=== PATIENT | female | born 1955 | race African-American/Black ===

== ENCOUNTER 2016-11-24 09:21 | Emergency (ER) | payer MEDICARE, MEDICAID ==
[2016-11-24] MEDS ORDERED: IPRATROPIUM/ALBUTEROL 0.5-2.5 MG/3 ML AMPUL NEB ONE (10:14)
[2016-11-24] MEDS ORDERED: LIDOCAINE 5% (700 MG) TRANSDERMAL ADH..PATCH TP ONE (10:16)
[2016-11-24] MEDS ORDERED: NORMAL SALINE 1000 ML 500 ML IV ONE (10:16)
[2016-11-24] MEDS ORDERED: AMLODIPINE BESYLATE 10 MG TABLET PO ONE (10:40)
[2016-11-24] MEDS ORDERED: LISINOPRIL 10 MG TABLET PO ONE (10:44)
[2016-11-24 12:31] LABS: VENOUS BLOOD BASE EXCESS -4.2 mmol/L; VENOUS BLOOD HCO3 21.3 mmol/L (20-32); VENOUS BLOOD PCO2 40.9 mmHg (35-63); VENOUS BLOOD PH 7.34 (7.30-7.42)
[2016-11-24] MEDS ORDERED: CLONIDINE HCL 0.1 MG TABLET PO ONE (13:39)
[2016-11-24 14:34] LABS: ADD MANUAL MICRO HEMATOCRIT YES
[2016-11-24] MEDS ORDERED: LORAZEPAM 1 MG TABLET PO ONE (14:36)
[2016-11-24] MEDS ORDERED: ALBUTEROL SULFATE HFA (90 MCG/PUFF) 8 GM MDI (1 MDI/ER DISP) IH ONE (14:36)
[2016-11-24 14:40] LABS: MICRO HEMATOCRIT 2 AUTO 44.6 %
[2016-11-24 14:44] LABS: BASOPHILS % (MANUAL) 0 % (0-2); EOSINOPHILS % (MANUAL) 2 % (0-6); LYMPHOCYTES % (MANUAL) 27 % (13-45); TOTAL CELLS COUNTED 100
--- NOTE | 2016-11-24 14:45 | ER Document Report ---
ED General - General Chief Complaint: Breathing Difficulty Stated Complaint: DIFFICULTY BREATHING - HPI Patient complains to provider of: shortness of breath opiate withdrawals Notes: Patient coming in to ER today for some shortness of breath opiate withdrawals. More or less patient is more concerned about appropriate withdrawals. Patient states that she was of a large amount of methadone while she was in [place] and [place]. Patient states recently moved here to [place] in August states that she's been increasing her use of her [place] home therefore came to ER and taken that she is going to go through opiate withdrawals. Patient also states some mild shortness of breath no productive cough. Patient states history of hepatitis C HIV hypertension along with her chronic pain issues. Patient does not have a PCP here in [place]. States HIV CD4 and viral load are undetectable. Denies fevers chills nausea vomiting - Related Data Allergies/Adverse Reactions: No Known Allergies Allergy (Unverified 11/24/16 11:00) Past Medical History - Social History Smoking Status: Unknown if Ever Smoked Family History: Reviewed & Not Pertinent - Past Medical History Cardiac Medical History: Reports: Hx Hypertension Review of Systems - Review of Systems Constitutional: No symptoms reported EENT: No symptoms reported Cardiovascular: No symptoms reported Respiratory: Cough, Short of breath Gastrointestinal: No symptoms reported Genitourinary: No symptoms reported Female Genitourinary: No symptoms reported Musculoskeletal: No symptoms reported Skin: No symptoms reported Hematologic/Lymphatic: No symptoms reported Neurological/Psychological: Other - Opiate withdrawals -: Yes All other systems reviewed and negative Physical Exam - Vital signs Vitals: Temp Pulse Resp BP Pulse Ox 98.1 F 81 17 172/111 H 100 11/24/16 09:21 11/24/16 09:21 11/24/16 09:21 11/24/16 09:21 11/24/16 09:21 Interpretation: Normal - General General appearance: Appears well, Alert - HEENT Head: Normocephalic, Atraumatic Eyes: Normal Pupils: PERRL - Respiratory Respiratory status: No respiratory distress Chest status: Nontender Breath sounds: Wheezing Chest palpation: Normal - Cardiovascular Rhythm: Regular Heart sounds: Normal auscultation Murmur: No - Abdominal Inspection: Normal Distension: No distension Bowel sounds: Normal Tenderness: Nontender Organomegaly: No organomegaly - Back Back: Normal, Nontender - Extremities General upper extremity: Normal inspection, Nontender, Normal color, Normal ROM , Normal temperature General lower extremity: Normal inspection, Nontender, Normal color, Normal ROM , Normal temperature, Normal weight bearing. No: Roderick's sign - Neurological Neuro grossly intact: Yes Cognition: Normal Orientation: AAOx4 Adrienne Coma Scale Eye Opening: Spontaneous [place] Coma Scale Verbal: Oriented [place] Coma Scale Motor: Obeys Commands Adrienne Coma Scale Total: 15 Speech: Normal Motor strength normal: LUE, RUE, LLE, RLE Sensory: Normal - Psychological Associated symptoms: Normal affect, Normal mood - Skin Skin Temperature: Warm Skin Moisture: Dry Skin Color: Normal Course - Re-evaluation Re-evalutation: 11/24/16 15:22 Patient shortness of breath improved with bronchodilator therapy. Chest x-ray showed no critical etiology. Laboratory had difficult time running patient's blood work. After 2 tries I reevaluated patient patient states otherwise feeling better patient she is getting mildly agitated from going through opiate withdrawals. Sizes patient that we will treat her appear withdrawals with Librium and clonidine and Zofran. Patient is to continue her home medications. Patient will also be given a bronchodilator for early bronchitis or viral etiology of shortness of breath. Patient states she does not want to wait for blood work agrees with treatment plan and agrees to follow-up with PCP. Patient discharged home - Vital Signs Vital signs: Temp Pulse Resp BP Pulse Ox 98 F 112 H 17 153/115 H 97 11/24/16 14:55 11/24/16 14:55 11/24/16 14:55 11/24/16 14:55 11/24/16 14:55 - Laboratory Result Diagrams: 11/24/16 13:28 11/24/16 12:07 Laboratory results interpreted by me: 11/24/16 13:28 Manual Hct 32.0 L Discharge - Discharge Clinical Impression: Opiate withdrawal, History of HIV infection, History of hepatitis C, Shortness of breath Condition: Good Disposition: HOME, SELF-CARE Instructions: Bronchitis With Bronchospasm (Wheezing) ([facility]), Family Physicians / Practices Additional Instructions: Please follow-up with family doctors and resources provided for your chronic health needs and your opiate withdrawals. Please take medication as prescribed for your withdrawal symptoms Return to ER if symptoms worsen Prescriptions: Ondansetron [Zofran Odt 4 mg Tablet] 4 mg PO Q4HP PRN #30 tab.rapdis PRN Reason: Chlordiazepoxide HCl [Librium 25 mg Capsule] 1 cap PO QID #16 capsule Clonidine HCl 0.1 mg PO TID #21 tablet Forms: Elevated Blood Pressure, Smoking Cessation Education, Return to Work
[2016-11-24 14:47] LABS: PLATELET CLUMPS PRESENT; ROULEAUX 2+
[2016-11-24 15:06] VITALS: BP 153/115
== END 2016-11-24 14:55 | disposition home or self-care (01) ==
LOC: ER 09:21
DX: R06.02 Shortness of breath (principal); F11.23 Opioid dependence with withdrawal; R05 Cough; G89.29 Other chronic pain; I10 Essential (primary) hypertension; Z21 Asymptomatic human immunodeficiency virus [HIV] infection status; R06.2 Wheezing; Z79.891 Long term (current) use of opiate analgesic
CPT/HCPCS: 94640; 99285; 96360; 96361; 36415; 85025; 82803; 74022; A9270 ×5; J7030; J3490; J7620

== ENCOUNTER 2016-12-03 18:00 | Emergency (ER) | payer MEDICARE, MEDICAID ==
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
[2016-12-03 19:17] LABS: APPEARANCE,URINE SLIGHTLY-CLOUDY; BILIRUBIN,URINE NEGATIVE (NEGATIVE); GLUCOSE, URINE NEGATIVE (NEGATIVE); KETONES,URINE NEGATIVE (NEGATIVE); LEUKOCYTE ESTERASE,URINE NEGATIVE (NEGATIVE); NITRITE,URINE NEGATIVE (NEGATIVE); PROTEIN,URINE 100 mg/dL (NEGATIVE); URINE SPECIFIC GRAVITY 1.012; UROBILINOGEN,URINE NEGATIVE mg/dL (<2.0)
[2016-12-03 19:30] LABS: URINE BARBITURATES SCREEN NEGATIVE; URINE METHADONE SCREEN NEGATIVE; URINE OPIATES LOW NEGATIVE; URINE PHENCYCLIDINE SCREEN NEGATIVE
[2016-12-03] MEDS ORDERED: LIDOCAINE 1% INJ-PF (10 MG/ML) 30 ML SDV INJ ONE (20:28)
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
[2016-12-03] MEDS ORDERED: SULFAMETHOXAZOLE/TRIMETHOPRIM 800-160 MG TABLET PO ONE (22:20)
[2016-12-04 00:15] VITALS: BP 148/98
--- NOTE | 2016-12-04 08:07 | EKG REPORT ---
SEVERITY:- BORDERLINE ECG - SINUS RHYTHM BORDERLINE T ABNORMALITIES, ANTERIOR LEADS : Confirmed by: Anirudh Bruno MD 04-Dec-2016 08:06:37
== END 2016-12-03 22:45 | disposition home or self-care (01) ==
LOC: ER 18:00
PROC: 0H9EXZZ Drainage of Left Lower Arm Skin, External Approach (ICD-10-PCS; principal; 2016-12-03)
DX: L02.414 Cutaneous abscess of left upper limb (principal); R06.02 Shortness of breath; R07.9 Chest pain, unspecified; R05 Cough; R53.81 Other malaise; R53.1 Weakness; I10 Essential (primary) hypertension; R00.0 Tachycardia, unspecified; F17.200 Nicotine dependence, unspecified, uncomplicated; Z21 Asymptomatic human immunodeficiency virus [HIV] infection status; Z86.11 Personal history of tuberculosis; Z59.9 Problem related to housing and economic circumstances, unspecified
CPT/HCPCS: 93005; 99285; 81001; 80307; 71010; 93010; 10060; A9270

== ENCOUNTER 2016-12-10 00:13 | Emergency (ER) | payer MEDICARE, MEDICAID ==
[2016-12-10] MEDS ORDERED: AMLODIPINE BESYLATE 10 MG TABLET PO ONE (01:07)
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
[2016-12-10 02:16] LABS: APPEARANCE,URINE CLEAR; BILIRUBIN,URINE NEGATIVE (NEGATIVE); GLUCOSE, URINE NEGATIVE (NEGATIVE); KETONES,URINE NEGATIVE (NEGATIVE); LEUKOCYTE ESTERASE,URINE NEGATIVE (NEGATIVE); NITRITE,URINE NEGATIVE (NEGATIVE); PROTEIN,URINE 100 mg/dL (NEGATIVE); UROBILINOGEN,URINE NEGATIVE mg/dL (<2.0)
[2016-12-10 02:31] LABS: URINE BARBITURATES SCREEN NEGATIVE; URINE METHADONE SCREEN NEGATIVE; URINE OPIATES LOW UNCONFIRMED POSITIVE; URINE PHENCYCLIDINE SCREEN NEGATIVE
[2016-12-10 04:16] VITALS: BP 175/115
--- NOTE | 2016-12-10 09:45 | EKG REPORT ---
SEVERITY:- BORDERLINE ECG - SINUS RHYTHM PROBABLE LEFT ATRIAL ABNORMALITY BORDERLINE T ABNORMALITIES, ANTERIOR LEADS : Confirmed by: Anirudh Bruno MD 10-Dec-2016 09:44:18
== END 2016-12-10 04:11 | disposition short-term general hospital (02) ==
LOC: ER 00:13
DX: R26.2 Difficulty in walking, not elsewhere classified (principal); R27.8 Other lack of coordination; F14.10 Cocaine abuse, uncomplicated; R06.09 Other forms of dyspnea; R07.9 Chest pain, unspecified; R53.1 Weakness; R10.11 Right upper quadrant pain; R41.0 Disorientation, unspecified; I10 Essential (primary) hypertension; B19.20 Unspecified viral hepatitis C without hepatic coma; Z21 Asymptomatic human immunodeficiency virus [HIV] infection status; Z79.899 Other long term (current) drug therapy; Z87.891 Personal history of nicotine dependence
CPT/HCPCS: 93005; 99285; 81001; 80307; 71010; 76705; 93976; 70450; 93010; A9270

== ENCOUNTER 2016-12-30 15:38 | Emergency (ER) | payer MEDICARE, MEDICAID ==
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
[2016-12-30] MEDS: NORMAL SALINE 1000 ML 1,000 ML IV PRN (17:01)
[2016-12-30 17:07] LABS: PROTHROMBIN TIME 14.5 SEC (11.4-15.4)
[2016-12-30 17:08] LABS: PARTIAL THROMBOPLASTIN TIME 37.1 SEC (23.5-35.8)
--- NOTE | 2016-12-30 17:22 | EKG REPORT ---
SEVERITY:- ABNORMAL ECG - SINUS TACHYCARDIA ATRIAL PREMATURE COMPLEX PROBABLE LVH WITH SECONDARY REPOL ABNRM : Confirmed by: Anirudh Bruno MD 30-Dec-2016 17:22:07
--- NOTE | 2016-12-30 17:24 | EKG REPORT ---
SEVERITY:- ABNORMAL ECG - SINUS TACHYCARDIA PROBABLE LEFT ATRIAL ABNORMALITY NONSPECIFIC ANTEROLATERAL ST-T CHANGES. BORDERLINE PROLONGED QT INTERVAL : Confirmed by: Anirudh Bruno MD 30-Dec-2016 17:23:45
[2016-12-30 18:01] LABS: ADD MANUAL MICRO HEMATOCRIT YES
[2016-12-30 18:04] LABS: BAND NEUTROPHILS % (MANUAL) 1 % (3-5); BASOPHILS % (MANUAL) 0 % (0-2); EOSINOPHILS % (MANUAL) 0 % (0-6); LYMPHOCYTES % (MANUAL) 36 % (13-45); TOTAL CELLS COUNTED 100
[2016-12-30 18:05] LABS: ANISOCYTOSIS 1+
[2016-12-30 18:18] LABS: MICRO HEMATOCRIT 1 AUTO 38.8 %
[2016-12-30 18:19] LABS: MICRO HEMATOCRIT 2 AUTO 23.9 %
[2016-12-30 18:27] LABS: PLATELET ESTIMATE 245 10^3/uL (150-450)
[2016-12-30 19:40] LABS: ALANINE AMINOTRANSFERASE 123 U/L (9-52); ALBUMIN 3.5 g/dL (3.5-5.0); ALKALINE PHOSPHATASE 114 U/L (38-126); ASPARTATE AMINO TRANSFERASE 73 U/L (14-36); BILIRUBIN,DIRECT 0.2 mg/dL (0.0-0.4); BILIRUBIN,TOTAL 0.5 mg/dL (0.2-1.3); BLOOD UREA NITROGEN 27 mg/dL (7-20); CARBON DIOXIDE 34 mmol/L (22-30); CHLORIDE 109 mmol/L (98-107); CREATINE KINASE 67 U/L (30-135); CREATININE RESULT 2.36 mg/dL (0.52-1.25); GLUCOSE 82 mg/dL (75-110); LIPASE 794.6 U/L (23-300); POTASSIUM 3.4 mmol/L (3.6-5.0); SODIUM 139.2 mmol/L (137-145)
[2016-12-30] MEDS ORDERED: LACTULOSE SYRUP 20 GM/30 ML UDCUP PO ONE (19:48)
[2016-12-30 20:36] LABS: TOTAL PROTEIN 10.2 g/dL (6.3-8.2)
[2016-12-30 20:38] LABS: ANION GAP 10 (5-19)
[2016-12-31] MEDS ORDERED: DIPHENHYDRAMINE HCL 50 MG/ML VIAL IV ONE (03:16)
[2016-12-31] MEDS ORDERED: HYDROCODONE/ACETAMINOPHEN 5-325 MG TABLET PO ONE (03:16)
[2016-12-31] MEDS ORDERED: CLONIDINE HCL 0.2 MG TABLET PO ONE (03:16)
--- NOTE | 2016-12-31 03:18 | ER Document Report ---
Doctor's Note Notes: 12/31/16 03:16 Nursing staff reports that patient is having difficulty sleeping, and normally takes Ambien for sleep, I did go to the bedside and evaluate patient, she states she does take Ambien for sleep, however is willing to try something different while in the emergency room, she is also complaining of some low back pain and is noted to have an elevated blood pressure and slight tachycardia, therefore blood pressure medications were ordered as well as some IV Benadryl and pain medication, otherwise patient remains stable and awaiting transfer to [facility] for further evaluation and treatment
[2016-12-31] MEDS ORDERED: OXYCODONE HCL IR 5 MG TABLET PO ONE (03:44)
[2016-12-31] MEDS ORDERED: LIDOCAINE 5% (700 MG) TRANSDERMAL ADH..PATCH TP ONE (07:48)
[2016-12-31 09:33] LABS: MEAN CORPUSCULAR HEMOGLOBIN 34.5 pg (27.0-33.4); MEAN CORPUSCULAR HGB CONC 34.6 g/dL (32.0-36.0); MEAN CORPUSCULAR VOLUME 100 fl (80-97); RED BLOOD COUNT 2.91 10^6/uL (3.72-5.28); RED CELL DISTRIBUTION WIDTH 16.6 % (11.5-14.0); WHITE BLOOD COUNT 7.4 10^3/uL (4.0-10.5)
[2016-12-31 10:03] LABS: ANION GAP 7 (5-19)
[2016-12-31 10:09] LABS: CALCIUM 12.6 mg/dL (8.4-10.2); GLUCOSE 106 mg/dL (75-110)
[2016-12-31 10:10] LABS: ALBUMIN 3.4 g/dL (3.5-5.0); ASPARTATE AMINO TRANSFERASE 70 U/L (14-36); BLOOD UREA NITROGEN 30 mg/dL (7-20); CARBON DIOXIDE 25 mmol/L (22-30); CHLORIDE 107 mmol/L (98-107); CREATININE RESULT 2.12 mg/dL (0.52-1.25); POTASSIUM 2.9 mmol/L (3.6-5.0); SODIUM 139.4 mmol/L (137-145)
[2016-12-31 10:11] LABS: ALANINE AMINOTRANSFERASE 113 U/L (9-52); ALKALINE PHOSPHATASE 104 U/L (38-126); BILIRUBIN,DIRECT 0.3 mg/dL (0.0-0.4); BILIRUBIN,TOTAL 0.5 mg/dL (0.2-1.3)
[2016-12-31] MEDS ORDERED: POTASSIUM CHLORIDE 20 MEQ/15 ML UDCUP PO ONE (11:03)
[2016-12-31] MEDS ORDERED: PROMETHAZINE HCL 25 MG TABLET PO PRN ×2 (11:27→12:19)
[2016-12-31] MEDS ORDERED: LANSOPRAZOLE 15 MG TAB.RAP.DR PO SCH (11:30)
[2016-12-31] MEDS ORDERED: HYDROCHLOROTHIAZIDE 25 MG TABLET PO SCH (11:30)
[2016-12-31] MEDS ORDERED: GABAPENTIN 300 MG CAPSULE PO SCH (11:30)
[2016-12-31] MEDS ORDERED: PREGABALIN 75 MG CAPSULE PO SCH ×2 (11:30→18:00)
[2016-12-31] MEDS ORDERED: LISINOPRIL 10 MG TABLET PO SCH (11:30)
[2016-12-31] MEDS ORDERED: NORMAL SALINE 1000 ML 1,000 ML IV ONE (11:39)
[2016-12-31] MEDS ORDERED: AMLODIPINE BESYLATE 10 MG TABLET PO SCH (12:00)
[2016-12-31 12:02] LABS: BASOPHILS % (MANUAL) 0 % (0-2); EOSINOPHILS % (MANUAL) 2 % (0-6); LYMPHOCYTES % (MANUAL) 28 % (13-45); TOTAL CELLS COUNTED 100
[2016-12-31 12:05] LABS: ANISOCYTOSIS SLIGHT
[2016-12-31 12:41] LABS: APPEARANCE,URINE CLEAR; BILIRUBIN,URINE NEGATIVE (NEGATIVE); GLUCOSE, URINE NEGATIVE (NEGATIVE); KETONES,URINE NEGATIVE (NEGATIVE); LEUKOCYTE ESTERASE,URINE NEGATIVE (NEGATIVE); NITRITE,URINE NEGATIVE (NEGATIVE); PROTEIN,URINE 100 mg/dL (NEGATIVE); UROBILINOGEN,URINE NEGATIVE mg/dL (<2.0)
[2016-12-31 12:55] LABS: URINE BARBITURATES SCREEN NEGATIVE; URINE METHADONE SCREEN NEGATIVE; URINE OPIATES LOW UNCONFIRMED POSITIVE; URINE PHENCYCLIDINE SCREEN NEGATIVE
[2016-12-31] MEDS ORDERED: NORMAL SALINE 1000 ML 1,000 ML IV PRN ×2 (12:59→13:03)
[2016-12-31] MEDS ORDERED: LISINOPRIL 10 MG TABLET PO ONE (13:00)
[2016-12-31] MEDS ORDERED: LACTULOSE SYRUP 20 GM/30 ML UDCUP PO ONE (13:00)
[2016-12-31] MEDS ORDERED: AMLODIPINE BESYLATE 5 MG TABLET PO ONE (13:00)
[2016-12-31] MEDS ORDERED: PREGABALIN 75 MG CAPSULE PO ONE (13:00)
[2016-12-31] MEDS ORDERED: LANSOPRAZOLE 15 MG TAB.RAP.DR PO ONE (13:00)
[2016-12-31] MEDS ORDERED: VENLAFAXINE HCL 75 MG TABLET PO SCH (14:00)
[2016-12-31] MEDS ORDERED: POTASSIUM CHLORIDE 10 MEQ TABLET.SA PO ONE (14:00)
[2016-12-31] MEDS ORDERED: NORMAL SALINE 1000 ML 2,000 ML IV ONE (14:00)
--- NOTE | 2016-12-31 14:21 | ER Document Report ---
Doctor's Note Notes: 12/31/16 14:20 Patient coming in for evaluation of syncope is currently waiting for transportation to [place]. Patient does have a history of multiple chronic medical problems. Patient also does have multiple a clot abnormalities. Did discuss patient's case with our hospitalist who were happy to consult and aid with medical management of this patient while we are waiting for the patient to be transferred to [place]. Patient otherwise at this time does not have any complaints. Bowel signs to remain stable
[2016-12-31] MEDS: GABAPENTIN 300 MG CAPSULE PO SCH ×2 (14:48→22:22)
[2016-12-31] MEDS: ACYCLOVIR 200 MG CAPSULE PO SCH (14:51)
[2016-12-31 15:49] LABS: ABSOLUTE EOSINOPHILS # (AUTO) 0.2 10^3/uL (0.0-0.6); ABSOLUTE LYMPHOCYTES (AUTO) 1.8 10^3/uL (0.5-4.7); ABSOLUTE MONOCYTES (AUTO) 0.7 10^3/uL (0.1-1.4); ABSOLUTE NEUT (AUTO) 3.2 10^3/uL (1.7-8.2); BASOPHILS % (AUTO) 0.3 % (0-2); EOSINOPHILS % (AUTO) 2.9 % (0-6); HEMATOCRIT 26.6 % (36.0-47.0); HEMOGLOBIN 9.3 g/dL (12.0-15.5); HGB HCT DIFFERENCE 1.3; LYMPHOCYTES % (AUTO) 30.7 % (13-45); MEAN CORPUSCULAR HEMOGLOBIN 35.2 pg (27.0-33.4); MEAN CORPUSCULAR HGB CONC 34.9 g/dL (32.0-36.0); MEAN CORPUSCULAR VOLUME 101 fl (80-97); MONOCYTES % (AUTO) 12.3 % (3-13); RED BLOOD COUNT 2.64 10^6/uL (3.72-5.28); RED CELL DISTRIBUTION WIDTH 17.2 % (11.5-14.0); SEGMENTED NEUTROPHILS % (AUTO) 53.8 % (42-78); WHITE BLOOD COUNT 5.9 10^3/uL (4.0-10.5)
[2016-12-31 16:03] LABS: ANION GAP 6 (5-19)
[2016-12-31 16:06] LABS: BLOOD UREA NITROGEN 24 mg/dL (7-20); CALCIUM 11.6 mg/dL (8.4-10.2); CARBON DIOXIDE 24 mmol/L (22-30); CHLORIDE 110 mmol/L (98-107); CREATININE RESULT 1.95 mg/dL (0.52-1.25); GLUCOSE 102 mg/dL (75-110); POTASSIUM 3.6 mmol/L (3.6-5.0); SODIUM 140.4 mmol/L (137-145)
[2016-12-31] MEDS ORDERED: LACTULOSE SYRUP 20 GM/30 ML UDCUP PO SCH (18:00)
[2016-12-31] MEDS: LACTULOSE SYRUP 20 GM/30 ML UDCUP PO SCH (19:28)
[2016-12-31] MEDS: DOCUSATE SODIUM 100 MG CAPSULE PO SCH (19:28)
[2016-12-31] MEDS: NORMAL SALINE 1000 ML 1,000 ML IV PRN (19:29)
[2016-12-31] MEDS: VENLAFAXINE HCL 75 MG TABLET PO SCH (19:29)
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
[2016-12-31] MEDS ORDERED: NICOTINE 21 MG/24 HR PATCH.TD24 TD ONE (21:15)
[2016-12-31] MEDS: OXYCODONE HCL IR 5 MG TABLET PO PRN (22:21)
[2016-12-31] MEDS: PANTOPRAZOLE SODIUM 40 MG VIAL IV SCH (22:22)
--- NOTE | 2016-12-31 23:07 | ER Document Report ---
Doctor's Note Notes: 12/31/16 23:07 This is a 61-year-old female with a complicated medical history including HIV, hepatitis (since 1993), TB (treated in 2000), neuropathy, hypertension and a recent admission for GI bleed at [facility]. The patient is relatively new to the area, having moved here from [place] in the fall. The patient presented to this hospital with syncopal episodes. The patient was found to be orthostatic and felt to be dehydrated with hypokalemia, hypercalcemia and concerns for hepatic encephalopathy. She was transferred for higher level of care. She is been treated with IV fluids, lactulose, electrolyte repletion. Currently, the patient states she's feeling much better. She is alert and oriented 3. She is in no distress and has no complaints. Repeat labs from this afternoon show mild improvement. The patient has been accepted to [facility] and we are just awaiting a bed.
[2016-12-31] MEDS ORDERED: CLONIDINE 0.2 MG/24 HR PATCH.TDWK TD ONE (23:27)
[2016-12-31] MEDS ORDERED: CLONIDINE 0.2 MG/24 HR PATCH.TDWK ONE (23:55)
[2017-01-01] MEDS: GABAPENTIN 300 MG CAPSULE PO SCH ×3 (05:40→23:08)
[2017-01-01] MEDS: OXYCODONE HCL IR 5 MG TABLET PO PRN ×2 (08:21→16:05)
[2017-01-01] MEDS: LISINOPRIL 10 MG TABLET PO SCH (09:14)
[2017-01-01] MEDS: DOCUSATE SODIUM 100 MG CAPSULE PO SCH ×2 (09:16→20:47)
[2017-01-01] MEDS: NORMAL SALINE 1000 ML 1,000 ML IV PRN ×3 (09:16→20:45)
[2017-01-01] MEDS: LACTULOSE SYRUP 20 GM/30 ML UDCUP PO SCH ×2 (09:16→20:45)
[2017-01-01] MEDS: AMLODIPINE BESYLATE 5 MG TABLET PO SCH (09:16)
[2017-01-01] MEDS: PANTOPRAZOLE SODIUM 40 MG VIAL IV SCH ×2 (09:17→23:04)
--- NOTE | 2017-01-01 09:30 | ER Document Report ---
Doctor's Note Notes: 01/01/17 09:30 pt reevalauted, currently stable, denies any concerns, explained ot her the issues with the wait time, pt is very understanding
[2017-01-01] MEDS ORDERED: (PENDING PHARMACY ID) (Lisinopril [Lisinopril] 20 MG) PO SCH (10:00)
[2017-01-01] MEDS ORDERED: LAMIVUDI PO SCH (10:00)
[2017-01-01] MEDS ORDERED: AMLODIPINE BESYLATE 5 MG TABLET PO SCH (10:00)
[2017-01-01] MEDS ORDERED: LISINOPRIL 10 MG TABLET PO SCH ×2 (10:00)
[2017-01-01] MEDS ORDERED: ABACAVIR PO SCH (10:00)
[2017-01-01] MEDS ORDERED: DOLUTEGRAVIR PO SCH (10:00)
[2017-01-01] MEDS ORDERED: LANSOPRAZOLE 15 MG TAB.RAP.DR PO SCH (10:00)
[2017-01-01] MEDS: VENLAFAXINE HCL 75 MG TABLET PO SCH ×3 (11:12→19:20)
[2017-01-01] MEDS: ACYCLOVIR 200 MG CAPSULE PO SCH (14:34)
[2017-01-01] MEDS ORDERED: HYDRALAZINE HCL INJ/PF 20 MG/1 ML SDV IV PRN (14:57)
[2017-01-01] MEDS ORDERED: CLONIDINE HCL 0.2 MG TABLET PO ONE (15:30)
[2017-01-01 17:00] LABS: ABSOLUTE EOSINOPHILS # (AUTO) 0.2 10^3/uL (0.0-0.6); ABSOLUTE LYMPHOCYTES (AUTO) 1.9 10^3/uL (0.5-4.7); ABSOLUTE MONOCYTES (AUTO) 0.6 10^3/uL (0.1-1.4); ABSOLUTE NEUT (AUTO) 3.7 10^3/uL (1.7-8.2); BASOPHILS % (AUTO) 0.5 % (0-2); EOSINOPHILS % (AUTO) 3.1 % (0-6); HEMATOCRIT 26.8 % (36.0-47.0); HEMOGLOBIN 9.2 g/dL (12.0-15.5); HGB HCT DIFFERENCE 0.8; LYMPHOCYTES % (AUTO) 29.3 % (13-45); MEAN CORPUSCULAR HEMOGLOBIN 34.9 pg (27.0-33.4); MEAN CORPUSCULAR HGB CONC 34.5 g/dL (32.0-36.0); MEAN CORPUSCULAR VOLUME 101 fl (80-97); MONOCYTES % (AUTO) 9.2 % (3-13); RED BLOOD COUNT 2.64 10^6/uL (3.72-5.28); RED CELL DISTRIBUTION WIDTH 17.1 % (11.5-14.0); SEGMENTED NEUTROPHILS % (AUTO) 57.9 % (42-78); WHITE BLOOD COUNT 6.4 10^3/uL (4.0-10.5)
[2017-01-01 17:15] LABS: ANION GAP 7 (5-19)
[2017-01-01 17:27] LABS: ALBUMIN 3.5 g/dL (3.5-5.0); ASPARTATE AMINO TRANSFERASE 58 U/L (14-36); BLOOD UREA NITROGEN 14 mg/dL (7-20); CALCIUM 12.2 mg/dL (8.4-10.2); CARBON DIOXIDE 23 mmol/L (22-30); CHLORIDE 110 mmol/L (98-107); CREATININE RESULT 1.62 mg/dL (0.52-1.25); GLUCOSE 115 mg/dL (75-110); POTASSIUM 3.4 mmol/L (3.6-5.0); SODIUM 140.3 mmol/L (137-145)
[2017-01-01 17:28] LABS: ALANINE AMINOTRANSFERASE 96 U/L (9-52); ALKALINE PHOSPHATASE 95 U/L (38-126); BILIRUBIN,DIRECT 0.2 mg/dL (0.0-0.4); BILIRUBIN,TOTAL 0.3 mg/dL (0.2-1.3); TOTAL PROTEIN 9.6 g/dL (6.3-8.2)
--- NOTE | 2017-01-01 19:06 | ER Document Report ---
Doctor's Note Notes: 01/01/17 19:05 Patient was evaluated by hospitalist staff patient is renal failure hypercalcemia has improved. More likely patient symptoms or related to dehydration. Otherwise patient still waiting on transfer to [facility] did call the transfer team states that they are still on diversion I do not see the possibility any beds opening up on next 12 hours. I did discuss with patient about possibility of discharge states that she would rather stay denies that she does not have arrival at the wait for [facility] however she is still here in the morning that she will be agreeable to discharge also Simran to talk to her daughter's about it first. Patient otherwise stable
[2017-01-01] MEDS: DOXEPIN HCL 10 MG CAPSULE PO SCH (19:21)
[2017-01-01] MEDS: CLONIDINE HCL 0.1 MG TABLET PO SCH (23:08)
[2017-01-02] MEDS: OXYCODONE HCL IR 5 MG TABLET PO PRN ×2 (04:21→19:57)
[2017-01-02] MEDS: GABAPENTIN 300 MG CAPSULE PO SCH ×3 (05:55→21:53)
[2017-01-02] MEDS: CLONIDINE HCL 0.1 MG TABLET PO SCH ×3 (05:55→21:53)
[2017-01-02] MEDS: PANTOPRAZOLE SODIUM 40 MG VIAL IV SCH ×2 (10:24→21:53)
[2017-01-02] MEDS: VENLAFAXINE HCL 75 MG TABLET PO SCH ×3 (10:29→19:44)
[2017-01-02] MEDS: LISINOPRIL 10 MG TABLET PO SCH (10:29)
[2017-01-02] MEDS: DOXEPIN HCL 10 MG CAPSULE PO SCH ×2 (10:29→19:43)
[2017-01-02] MEDS: AMLODIPINE BESYLATE 5 MG TABLET PO SCH (10:30)
[2017-01-02] MEDS: DOCUSATE SODIUM 100 MG CAPSULE PO SCH ×2 (10:31→19:43)
[2017-01-02] MEDS: LACTULOSE SYRUP 20 GM/30 ML UDCUP PO SCH ×2 (10:31→19:44)
[2017-01-02] MEDS: ACYCLOVIR 200 MG CAPSULE PO SCH (15:02)
--- NOTE | 2017-01-02 16:20 | ER Document Report ---
Doctor's Note Notes: 01/02/17 16:20 Patient was reevaluated, she is resting comfortably states she's been walking around with no difficulty. Given that we are still awaiting for transfer I did speak to her about discharge, she wishes to be discharged if she is still here by Sunday
--- NOTE | 2017-01-02 19:39 | ER Document Report ---
Doctor's Note Notes: 01/02/17 19:36 Asked to see patient and evaluate her because of the length of stay waiting for a bed at [facility]. Reviewed her entire history spoke with the patient at the bedside. Multiple ED notes about possible discharge of the patient however the daughter who is not here currently was insistent that the patient was not cared for properly in [place] or [place] and that they want to be transferred to [facility]. The hospitalist has not wanted to admit her here due to HIV status. Patient states at the bedside currently she is awake alert not dizzy or lightheaded with no chest pain or shortness of breath. She states that her daughter is going to come in this evening to discuss possibility of discharge or outpatient follow-up.
[2017-01-02] MEDS: NORMAL SALINE 1000 ML 1,000 ML IV PRN (23:21)
[2017-01-03] MEDS: OXYCODONE HCL IR 5 MG TABLET PO PRN ×2 (04:11→13:04)
[2017-01-03] MEDS ORDERED: SIMETHICONE 80 MG TAB.CHEW PO ONE (06:06)
[2017-01-03] MEDS: CLONIDINE HCL 0.1 MG TABLET PO SCH ×2 (06:12→15:43)
[2017-01-03] MEDS: GABAPENTIN 300 MG CAPSULE PO SCH ×2 (06:12→15:44)
--- NOTE | 2017-01-03 06:30 | ER Document Report ---
Doctor's Note Notes: 01/03/17 05:29 Resting comfortably. Vital stable. Patient will be signed out to oncoming provider. Still awaiting a bed at [facility].
[2017-01-03] MEDS: LACTULOSE SYRUP 20 GM/30 ML UDCUP PO SCH ×2 (10:09→18:39)
[2017-01-03] MEDS: PANTOPRAZOLE SODIUM 40 MG VIAL IV SCH (10:09)
[2017-01-03] MEDS: AMLODIPINE BESYLATE 5 MG TABLET PO SCH (10:10)
[2017-01-03] MEDS: LISINOPRIL 10 MG TABLET PO SCH (10:10)
[2017-01-03] MEDS: DOCUSATE SODIUM 100 MG CAPSULE PO SCH ×2 (10:10→18:40)
[2017-01-03] MEDS: DOXEPIN HCL 10 MG CAPSULE PO SCH (10:15)
[2017-01-03] MEDS: VENLAFAXINE HCL 75 MG TABLET PO SCH (10:15)
--- NOTE | 2017-01-03 12:09 | ER Document Report ---
Doctor's Note Notes: 01/03/17 12:08 pt reevaluated and stable. will order cbc and cmp repeat [facility] will not take the patient
[2017-01-03 14:20] LABS: ABSOLUTE EOSINOPHILS # (AUTO) 0.1 10^3/uL (0.0-0.6); ABSOLUTE LYMPHOCYTES (AUTO) 0.9 10^3/uL (0.5-4.7); ABSOLUTE MONOCYTES (AUTO) 0.3 10^3/uL (0.1-1.4); ABSOLUTE NEUT (AUTO) 3.8 10^3/uL (1.7-8.2); BASOPHILS % (AUTO) 0.2 % (0-2); EOSINOPHILS % (AUTO) 1.2 % (0-6); HEMATOCRIT 24.6 % (36.0-47.0); HEMOGLOBIN 8.6 g/dL (12.0-15.5); HGB HCT DIFFERENCE 1.2; LYMPHOCYTES % (AUTO) 17.2 % (13-45); MEAN CORPUSCULAR HGB CONC 34.9 g/dL (32.0-36.0); MEAN CORPUSCULAR VOLUME 100 fl (80-97); MONOCYTES % (AUTO) 6.6 % (3-13); RED BLOOD COUNT 2.46 10^6/uL (3.72-5.28); SEGMENTED NEUTROPHILS % (AUTO) 74.8 % (42-78)
[2017-01-03 14:40] LABS: ALANINE AMINOTRANSFERASE 75 U/L (9-52); ALBUMIN 3.4 g/dL (3.5-5.0); ALKALINE PHOSPHATASE 97 U/L (38-126); ANION GAP 6 (5-19); ASPARTATE AMINO TRANSFERASE 40 U/L (14-36); BILIRUBIN,DIRECT 0.1 mg/dL (0.0-0.4); BILIRUBIN,TOTAL 0.4 mg/dL (0.2-1.3); BLOOD UREA NITROGEN 8 mg/dL (7-20); CARBON DIOXIDE 24 mmol/L (22-30); CHLORIDE 109 mmol/L (98-107); CREATININE RESULT 1.28 mg/dL (0.52-1.25); GLUCOSE 112 mg/dL (75-110); SODIUM 139.3 mmol/L (137-145); TOTAL PROTEIN 8.5 g/dL (6.3-8.2)
[2017-01-03 14:49] LABS: CALCIUM 11.9 mg/dL (8.4-10.2)
[2017-01-03 14:52] LABS: POTASSIUM 3.1 mmol/L (3.6-5.0)
[2017-01-03] MEDS ORDERED: POTASSIUM CHLORIDE 10 MEQ TABLET.SA PO ONE (15:15)
[2017-01-03] MEDS: ACYCLOVIR 200 MG CAPSULE PO SCH (15:44)
[2017-01-03] MEDS ORDERED: VENLAFAXINE HCL 75 MG TABLET PO ONE (16:00)
[2017-01-03] MEDS ORDERED: DOXEPIN HCL 10 MG CAPSULE PO ONE (16:00)
[2017-01-03] MEDS ORDERED: FUROSEMIDE INJ/PF 40 MG/4 ML SDV IV ONE (16:43)
[2017-01-03 19:05] VITALS: BP 114/85
[2017-01-03] MEDS ORDERED: VENLAFAXINE HCL 75 MG TABLET PO SCH (22:00)
[2017-01-03] MEDS ORDERED: DOXEPIN HCL 10 MG CAPSULE PO SCH (22:00)
== END 2017-01-03 19:20 | disposition home or self-care (01) ==
LOC: ER 15:38
DX: N28.9 Disorder of kidney and ureter, unspecified (principal); E83.52 Hypercalcemia; E86.0 Dehydration; B20 Human immunodeficiency virus [HIV] disease; I95.1 Orthostatic hypotension; F11.20 Opioid dependence, uncomplicated; F11.10 Opioid abuse, uncomplicated; R53.1 Weakness; R55 Syncope and collapse; B18.2 Chronic viral hepatitis C; I10 Essential (primary) hypertension; Z96.652 Presence of left artificial knee joint; Z86.11 Personal history of tuberculosis
CPT/HCPCS: 93005; 96376; 99291; 96361; 96374; 96375; 36415; 82550; 83690; 80307 ×2; 85025; 85610; 85730; 80076; 80048; 80053; 81001; 82397; 82330; 71010; 93010; A9270 ×36; J1200; J1940; J0360; J3490; C9113 ×3; J7030 ×3; 82306; 82652; 83970; S0164

== ENCOUNTER 2017-02-24 21:44 | Inpatient (IN) | payer MEDICARE, MEDICAID ==
[2017-02-24 22:56] LABS: ABSOLUTE LYMPHOCYTES (AUTO) 1.2 10^3/uL (0.5-4.7); ABSOLUTE NEUT (AUTO) 3.8 10^3/uL (1.7-8.2); BASOPHILS % (AUTO) 0.4 % (0-2); EOSINOPHILS % (AUTO) 0.8 % (0-6); HEMATOCRIT 37.7 % (36.0-47.0); HEMOGLOBIN 12.7 g/dL (12.0-15.5); HGB HCT DIFFERENCE 0.4; MEAN CORPUSCULAR HEMOGLOBIN 34.3 pg (27.0-33.4); MEAN CORPUSCULAR HGB CONC 33.8 g/dL (32.0-36.0); MEAN CORPUSCULAR VOLUME 101 fl (80-97); MONOCYTES % (AUTO) 17.2 % (3-13); RED BLOOD COUNT 3.72 10^6/uL (3.72-5.28); RED CELL DISTRIBUTION WIDTH 14.1 % (11.5-14.0); SEGMENTED NEUTROPHILS % (AUTO) 62.6 % (42-78); WHITE BLOOD COUNT 6.1 10^3/uL (4.0-10.5)
[2017-02-24 23:08] LABS: ALANINE AMINOTRANSFERASE 134 U/L (9-52); ALBUMIN 4.7 g/dL (3.5-5.0); ALKALINE PHOSPHATASE 59 U/L (38-126); ANION GAP 19 (5-19); ASPARTATE AMINO TRANSFERASE 179 U/L (14-36); BILIRUBIN,DIRECT 0.6 mg/dL (0.0-0.4); BILIRUBIN,TOTAL 0.7 mg/dL (0.2-1.3); BLOOD UREA NITROGEN 31 mg/dL (7-20); CALCIUM 11.3 mg/dL (8.4-10.2); CARBON DIOXIDE 15 mmol/L (22-30); CHLORIDE 106 mmol/L (98-107); CREATININE RESULT 1.66 mg/dL (0.52-1.25); GLUCOSE 71 mg/dL (75-110); POTASSIUM 3.6 mmol/L (3.6-5.0); SODIUM 139.7 mmol/L (137-145); TOTAL PROTEIN 8.6 g/dL (6.3-8.2)
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
[2017-02-24] MEDS ORDERED: NORMAL SALINE 1000 ML 1,000 ML IV ONE (23:40)
[2017-02-25 00:55] LABS: APPEARANCE,URINE SLIGHTLY-CLOUDY; BILIRUBIN,URINE NEGATIVE (NEGATIVE); GLUCOSE, URINE NEGATIVE (NEGATIVE); KETONES,URINE TRACE mg/dL (NEGATIVE); LEUKOCYTE ESTERASE,URINE TRACE (NEGATIVE); NITRITE,URINE NEGATIVE (NEGATIVE); PROTEIN,URINE 100 mg/dL (NEGATIVE); URINE SPECIFIC GRAVITY 1.019; UROBILINOGEN,URINE NEGATIVE mg/dL (<2.0)
[2017-02-25 01:33] LABS: URINE BARBITURATES SCREEN NEGATIVE; URINE METHADONE SCREEN NEGATIVE; URINE OPIATES LOW UNCONFIRMED POSITIVE; URINE PHENCYCLIDINE SCREEN NEGATIVE
[2017-02-25] MEDS ORDERED: CIPROFLOXACIN 400 MG/D5W RTU 200 ML IV ONE (04:01)
[2017-02-25 05:31] LABS: CREATINE KINASE MB 1.13 ng/mL (<4.55)
[2017-02-25 05:32] LABS: TROPONIN I < 0.012 ng/mL
[2017-02-25 06:01] LABS: ADD ON TESTING BLD IN LAB ACKNOWLEDGE
[2017-02-25 06:13] LABS: MAGNESIUM 2.8 mg/dL (1.6-2.3)
[2017-02-25 06:51] LABS: ABSOLUTE EOSINOPHILS # (AUTO) 0.1 10^3/uL (0.0-0.6); ABSOLUTE LYMPHOCYTES (AUTO) 1.2 10^3/uL (0.5-4.7); ABSOLUTE MONOCYTES (AUTO) 0.9 10^3/uL (0.1-1.4); ABSOLUTE NEUT (AUTO) 3.6 10^3/uL (1.7-8.2); BASOPHILS % (AUTO) 0.3 % (0-2); EOSINOPHILS % (AUTO) 1.5 % (0-6); HEMATOCRIT 36.1 % (36.0-47.0); HEMOGLOBIN 12.5 g/dL (12.0-15.5); HGB HCT DIFFERENCE 1.4; MEAN CORPUSCULAR HGB CONC 34.6 g/dL (32.0-36.0); MEAN CORPUSCULAR VOLUME 101 fl (80-97); MONOCYTES % (AUTO) 15.5 % (3-13); RED BLOOD COUNT 3.57 10^6/uL (3.72-5.28); RED CELL DISTRIBUTION WIDTH 14.1 % (11.5-14.0); SEGMENTED NEUTROPHILS % (AUTO) 61.7 % (42-78); WHITE BLOOD COUNT 5.8 10^3/uL (4.0-10.5)
[2017-02-25 07:14] LABS: ALANINE AMINOTRANSFERASE 128 U/L (9-52); ALBUMIN 4.6 g/dL (3.5-5.0); ALKALINE PHOSPHATASE 56 U/L (38-126); ANION GAP 16 (5-19); ASPARTATE AMINO TRANSFERASE 161 U/L (14-36); BILIRUBIN,DIRECT 0.6 mg/dL (0.0-0.4); BILIRUBIN,TOTAL 0.8 mg/dL (0.2-1.3); BLOOD UREA NITROGEN 34 mg/dL (7-20); CARBON DIOXIDE 18 mmol/L (22-30); CHLORIDE 106 mmol/L (98-107); CREATININE RESULT 1.53 mg/dL (0.52-1.25); GLUCOSE 68 mg/dL (75-110); POTASSIUM 3.7 mmol/L (3.6-5.0); SODIUM 139.7 mmol/L (137-145); TOTAL PROTEIN 8.4 g/dL (6.3-8.2)
--- NOTE | 2017-02-25 07:32 | Progress Note ---
Provider Note Provider Note: RUSTY ARMSTRONG Search Criteria: Last Name 'Rusty' and First Name 'Edilia' and = 51 ' and Request Period = 08/29/16' to 02/25/17' - 1 out of 1 Recipients Selected. Fill Date Product, Str, Form Qty Days Pt ID Prescriber Written RX# N/R* Pharm MED+ ------ ---- --------- --- ------- ----- 02/14/2017 LYRICA 75 MG CAPSULE 60.00 30 [id number] 02/12/2017 [id number] N [id number] 00.0 02/14/2017 ZOLPIDEM TART ER 12.5 MG TAB 30.00 30 [id number] 02/12/2017 [id number] N [id number] 00.0 01/26/2017 OXYCODONE HCL 10 MG TABLET 40.00 10 [id number] 01/26/2017 [id number] N [id number] 60.0 01/18/2017 ZOLPIDEM TART ER 12.5 MG TAB 30.00 30 [id number] 01/15/2017 [id number] N [id number] 00.0 12/01/2016 LYRICA 75 MG CAPSULE 60.00 30 [id number] 12/01/2016 [id number] N [id number] 00.0 11/28/2016 ZOLPIDEM TARTRATE 10 MG TABLET 30.00 30 [id number] 2016 [id number] N [id number] 00.0 11/25/2016 CHLORDIAZEPOXIDE 25 MG CAPSULE 16.00 3 [id number] 11/24/2016 [id number] N [id number] 00.0 [id number] NATY KNUTSON DO; [facility], [address] [place] [id number] RAMILA HENRÁNDEZ MD; [address] [place] [id number] Pharmacies that dispensed prescriptions listed [id number] [employer] [facility] [address] [facility] Patients that match search criteria ---- [id number] [address]; [address] [facility] [place] [id number]
[2017-02-25] MEDS ORDERED: (PENDING PHARMACY ID) (Doxepin Hcl [Silenor] 3 MG) PO PRN (14:40)
[2017-02-25] MEDS ORDERED: PROCHLORPERAZINE MALEATE 10 MG TABLET PO PRN (14:40)
[2017-02-25] MEDS: HEPARIN SOD (PORCINE) 5,000 UNIT/ML 1 ML SYRINGE SUBCUT SCH ×2 (15:23→21:09)
[2017-02-25] MEDS: OXYCODONE HCL IR 5 MG TABLET PO PRN ×2 (16:48→22:50)
--- NOTE | 2017-02-25 17:10 | EKG REPORT ---
SEVERITY:- ABNORMAL ECG - SINUS TACHYCARDIA LEFT ATRIAL ABNORMALITY PROBABLE LEFT VENTRICULAR HYPERTROPHY : Confirmed by: Gricelda Green MD 25-Feb-2017 17:10:05
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
[2017-02-25] MEDS ORDERED: CLONIDINE HCL 0.1 MG TABLET ONE (21:05)
[2017-02-25] MEDS: AMITRIPTYLINE HCL 25 MG TABLET PO SCH (21:07)
[2017-02-25] MEDS: LACTULOSE SYRUP 20 GM/30 ML UDCUP PO SCH (21:07)
[2017-02-25] MEDS: PREGABALIN 75 MG CAPSULE PO SCH (21:08)
[2017-02-25] MEDS: CLONIDINE HCL 0.1 MG TABLET PO SCH (21:49)
[2017-02-25] MEDS ORDERED: (PENDING PHARMACY ID) (Lactulose [Constulose 10 Gm/15 Ml Oral Solution] 30 ML) PO SCH (22:00)
[2017-02-25] MEDS ORDERED: CLONIDINE HCL 0.1 MG TABLET PO SCH (22:00)
[2017-02-25] MEDS ORDERED: CIPROFLOXACIN 400 MG/D5W RTU 200 ML IV SCH (22:00)
[2017-02-26] MEDS: CLONIDINE HCL 0.1 MG TABLET PO SCH (06:18)
[2017-02-26] MEDS: HEPARIN SOD (PORCINE) 5,000 UNIT/ML 1 ML SYRINGE SUBCUT SCH ×3 (06:19→23:02)
[2017-02-26] MEDS: OXYCODONE HCL IR 5 MG TABLET PO PRN (06:19)
--- NOTE | 2017-02-26 07:42 | Physician Advisory Note ---
Physician Advisor ProgressNote .: Pursuant to the plan for [facility], I have reviewed the medical record for this patient. Physician Advisor Statement: Possible documentation opportunities if attending agrees: 1. "Acute metabolic acidosis, likely due to " 2. Med necessity: ?"orthostatic hypotension, likely due to ____", "Persistent tachycardia since arrival", "Hypoglycemia", .... - see below 3. "Acute Kidney Injury due to intravascular volume depletion, improved, w/ baseline Cr 1.2" 4. "long h/o IVDA - concern for bacterial heart valve damage/infection [or ...? ]" As always, if concerned about any unstable VS or abnormal labs, please comment on them - what bad things they might indicate, why they concern you - & note what doing about them. Please also document each day the potential clinical problems you are concerned could occur if pt not kept in hospital for tx at this time. (These points are medina - if present in each note, attending's status decision should be sufficiently supported.) Discussion: 61yo female w/ chronic co-morbidities including HTN, HIV on no current antivirals likely due to repeated noncompliance w/tx, hep C, ? TIA, repeated episodes of syncope over years, polypharmacy including Lyrica, Ambien, oxycodone , & Librium, substance abuse inclucing IV heroin use age [age], methadone until appx 2mo ago, using non-Rx'd opioids & crack cocaine, Etoh abuse, TB, [place] light chain dz with recent chemotx, CKD stage 2-3. - presented late 02/24 PM to ED w/AMS of fluctuating sx including intermittent hallucinations & excessive somnolence (+) HR 103, RR26, bicarb 15, BUN 31, Cr 1.66, Glc 71, Ca 11.3, elevated LFTs, UDS (+) opiates/benzos/cocaine. ED gave cipro & IVF, with temporary improvement in tachycardia. Attending ordered IV cipro, clonidine q8h, lactulose q12h, oxycodone 10mg q6h prn, Lyrica 75mg q12h, compazine prn, Hem-Onc consult. Status: Pt initially appropriate for Outpt Obs for AMS/polypharm/substance abuse/UTI. Since arrival, this Medicare pt persistently tachycardic, then w/fall w/ apparent orthostasis w/BP down to 80/55, prompting further eval by covering attending including q4h orthostatic VS, head CT, falls precautions w/bed alarm. (This occurred after episode of bowel incontinence, which was also not reported to be a baseline issue for this pt.) Following attending was concerned for dehydration causing orthostatic hypotension, ordered IVF, cut back dose clonidine, changing to Norvasc w/close monitoring continuing. Also concerned for damage or infxn of heart related to h/o IVDA. Tx & monitoring in inpatient hospital setting medically reasonable & necessary to protect pt's health, safety, & medical condition. Appropriate for Inpt status. Thanks for your help with documentation accuracy/specificity improvement! Marlene Candelario MD [facility] Physician Advisor, Fellow of [facility]
[2017-02-26] MEDS: CIPROFLOXACIN 400 MG/D5W RTU 400 MG/200 ML RTUPB IV SCH ×2 (07:49→10:07)
[2017-02-26] MEDS: AMITRIPTYLINE HCL 25 MG TABLET PO SCH ×2 (10:06→23:01)
[2017-02-26] MEDS: PREGABALIN 75 MG CAPSULE PO SCH ×2 (10:06→23:01)
[2017-02-26] MEDS: LACTULOSE SYRUP 20 GM/30 ML UDCUP PO SCH ×2 (10:06→23:01)
[2017-02-26] MEDS ORDERED: METOPROLOL SUCCINATE 50 MG TAB.SR.24H PO SCH (10:45)
--- NOTE | 2017-02-26 11:30 | PROGRESS NOTE E ---
Progress Note NAME: NATHANIEL DOMINGUEZ : 1955 AGE: 61Y DATE: 02/26/2017 ROOM: 318 SUBJECTIVE: The patient is currently lying in bed. The patient will awaken, but appears a little slow, but is more alert than she was yesterday on admission. The patient apparently overnight got out of bed and was quite weak and fell and struck her head. There was no obvious area of this. The patient's CT was unremarkable. I have obtained records from the patient's recent visit at [facility], which has been more enlightening. The patient does appear to have some orthostasis and the patient denies any nausea, vomiting. No diarrhea, shortness of breath, chest pain. She denies any dizziness as well, just complains of weakness. The patient freely admits to having years of syncopal episodes and that this is not too uncommon for her and no other concerns are voiced at this time. REVIEW OF SYSTEMS: Rest of review of systems negative. MEDICATIONS: Medications have been reviewed. OBJECTIVE: GENERAL: The patient is a 61-year-old -Irish female who is awake, alert. She is oriented to person, place, time. She is a little delayed, does not appear to be in any acute distress. VITAL SIGNS: Temperature is 97.8, pulse 101, respirations 18, blood pressure is 171/81, oxygen saturation is 97% on room air. SKIN: Warm and dry. No rash. She is not diaphoretic. HEENT: Pupils equal, round, reactive to light and accommodation. Conjunctiva is pink. There is no JVP. CARDIOVASCULAR SYSTEM: Heart is regular. No rub. CHEST: Clear, symmetrical, unlabored. ABDOMEN: Soft, nontender, nondistended. BACK: No CVA tenderness or sacral edema. EXTREMITIES: No clubbing, cyanosis, or edema. PSYCHIATRIC: Apathetic, cooperative, but not completely forthcoming. DIAGNOSTICS: Lab values are as follows: Hematology obtained on 02/25/2017: WBCs are 5.8, hemoglobin is 12.5, hematocrit is 36.1, platelet count is 134,000. Chemistry obtained on 02/25/2017: Sodium is 139, potassium 3.7, chloride is 106, carbon dioxide 18, BUN 34, creatinine is 1.53, glucose 68, calcium is 11.0. AST 161, ALT is 128. IMPRESSION AND PLAN: 1. SYNCOPE STATUS POST FALL WELL. Upon review of records, it appears that the patient does have a significant history of this, however, she is unable to articulate any form of workup. The patient has recently relocated from here. Upon review of the records from [facility], does not appear the patient has had a recent echocardiogram or cardiac evaluation. Given the patient's long history of IV drug use, will obtain echocardiogram, and in the meantime, will liberalize salt in diet given the patient's orthostasis. 2. ORTHOSTATIC HYPOTENSION PER NUMBER 1. As well, the patient has had a long history of having syncopal episodes. Uncertain if this is related to her substance use; however, the patient does appear to be somewhat dehydrated. Will hydrate the patient and follow. 3. HYPERTENSION. The patient has had some quite symptomatic hypotension, but rebounds rapidly. Most likely this is due to clonidine. Will taper this and transition to Norvasc. I have reviewed the records from [facility] and the patient's clonidine was actually discontinued during a previous admission. However, the patient has continued to take it. Will follow blood pressures closely and watch for rebound tachycardia. Will avoid beta blockers given the patient's cocaine use. 4. KAPPA LIGHT CHAIN DISEASE. The patient was initially treated at [facility], but is now seeing Dr. Dooley. She has had 2 doses of chemotherapy outpatient according to the patient. Will consult Dr. Dooley for input. 5. SUBSTANCE ABUSE. According to previous records, it appears that the patient has had a history of intravenous heroin use from the ages of 15 to 57. The patient was on methadone until a couple of months ago when she moved to [place]. The patient will use crack cocaine and was actually positive on admission. The patient has been counseled on possible interactions with medications and the dangers associated with this. 6. HEPATITIS C. The patient is naive to treatment. Her viral load was 500,000. Most likely, this is the reason for elevation of LFTs. 7. CHRONIC KIDNEY DISEASE STAGE 2-3. It appears the patient's baseline creatinine is actually around 1.2. Given the slight metabolic acidosis, do feel the patient is actually a little dry. Will hydrate. 8. NAUSEA AND VOMITING. Will continue p.r.n. antiemetics. 9. HUMAN IMMUNODEFICIENCY VIRUS. The patient is not on any antiviral medications. It appears the patient is supposed to be referred to Infectious Disease at [facility] through Dr. Dooley for management with this. I can only assume the medications have been halted given the patient's history of noncompliance and risk for drug resistance. Will not start any further medications at this time. 10. DVT PROPHYLAXIS. Will continue subcu heparin. DISPOSITION: The patient is a FULL CODE. Pending patient's symptomatology and diagnostic findings, will re-evaluate in the a.m. Will actually refer the patient to palliative care given her multiple comorbidities as well as new chronic illness. Will need some help in guidance and goal setting. Time spent on this followup including assessment, plan, physical examination, attempt at patient education and specialty collaboration is 35 minutes. DICTATING PHYSICIAN: DALE TOLENTINO NP [id number] PHY#: [id number] ID: [id number] JOB#: [id number] ACCT: [id number] cc: >
[2017-02-26] MEDS: AMLODIPINE BESYLATE 5 MG TABLET PO SCH (12:21)
[2017-02-26] MEDS: NORMAL SALINE 1000 ML 1,000 ML IV PRN ×3 (12:24→23:02)
--- NOTE | 2017-02-26 18:43 | XCELERA REPORT ---
[address] [address] Transthoracic Echocardiogram Report Name: NATHANIEL DOMINGUEZ Age: 61 yrs Gender: Female : 1955 Patient Status: Inpatient Patient Location: 3W\S\318\S\B Study Date: 02/26/2017 11:16 AM Height: 66 in Weight: 145 lb BSA: 1.7 m2 Procedure: A complete two-dimensional transthoracic echocardiogram was performed (2D, M-mode, spectral and color flow Doppler). The study was technically adequate with some images being suboptimal in quality. Reason For Study: syncope Ordering Physician: DALE TOLENTINO Performed By: Swapna Clay Interpretation Summary The left ventricular ejection fraction is normal. There is moderate concentric left ventricular hypertrophy. Doppler measurements suggest pseudonormalized left ventricular relaxation, which is associated with grade II/IV or mild to moderate diastolic dysfunction The left ventricle is grossly normal size. Wall motion cannot be accurately commented on, but no definite regional wall motion abnormalities noted. The right atrium is normal in size The left atrial size is normal. There is a trace to mild amount of mitral regurgitation There is no mitral valve stenosis. No aortic regurgitation is present. There is no aortic valve stenosis There is a mild amount of tricuspid regurgitation Right ventricular systolic pressure is at the upper limits of normal The aortic root is not well visualized but is probably normal size. The inferior vena cava was not well visualized There is no pericardial effusion. MMode/2D Measurements \T\ Calculations RVDd: 3.3 cm LVIDd: 3.8 cm FS: 29.1 % Ao root diam: IVSd: 1.2 cm LVIDs: 2.7 cm EDV(Teich): 3.3 cm LVPWd: 1.2 cm 61.3 ml Ao root area: ESV(Teich): 26.6 ml 8.5 cm2 EF(Teich): 56.7 % LA dimension: 3.4 cm LVOT diam: LVLd ap4: 7.0 cm SV(MOD-sp4): 2.2 cm EDV(MOD-sp4): 34.0 ml LVOT area: 60.0 ml LVLs ap4: 5.7 cm 3.9 cm2 ESV(MOD-sp4): 26.0 ml EF(MOD-sp4): 56.7 % Doppler Measurements \T\ Calculations MV E max porter: MV P1/2t max porter: Ao V2 max: LV V1 max P.8 cm/sec 51.8 cm/sec 92.6 cm/sec 2.5 mmHg MV A max porter: MV P1/2t: 42.3 msec Ao max PG: LV V1 max: 84.9 cm/sec MVA(P1/2t): 5.2 cm2 3.4 mmHg 79.8 cm/sec MV E/A: 0.60 MV dec slope: VIMAL(V,D): 3.4 cm2 359.0 cm/sec2 PA V2 max: PI end-d porter: TR max porter: 74.5 cm/sec 145.4 cm/sec 203.6 cm/sec PA max PG: TR max P.2 mmHg 16.6 mmHg Left Ventricle The left ventricle is grossly normal size. There is moderate concentric left ventricular hypertrophy. The left ventricular ejection fraction is normal. Doppler measurements suggest pseudonormalized left ventricular relaxation, which is associated with grade II/IV or mild to moderate diastolic dysfunction. Wall motion cannot be accurately commented on, but no definite regional wall motion abnormalities noted. Right Ventricle The right ventricle is grossly normal size. There is normal right ventricular wall thickness. The right ventricular systolic function is normal. Atria The right atrium is normal in size. The left atrial size is normal. Interarterial septum not well visualized and not well dopplered. Cannot comment on ASD/PFO presence. Mitral Valve The mitral valve leaflets are sclerotic, but show no functional abnormalities. There is no mitral valve stenosis. There is a trace to mild amount of mitral regurgitation. Aortic Valve The aortic valve is grossly normal. There is no aortic valve stenosis. No aortic regurgitation is present. Tricuspid Valve The tricuspid valve is not well visualized, but is grossly normal. There is no tricuspid stenosis. There is a mild amount of tricuspid regurgitation. Right ventricular systolic pressure is at the upper limits of normal. Pulmonic Valve The pulmonic valve is not well visualized. Great Vessels The aortic root is not well visualized but is probably normal size. The inferior vena cava was not well visualized. Effusions There is no pericardial effusion. : DALE TOLENTINO > Alexandrea Aguirre
[2017-02-26] MEDS ORDERED: NORMAL SALINE 1000 ML 1,000 ML IV ONE (20:30)
--- NOTE | 2017-02-26 23:22 | Progress Note ---
Provider Note Provider Note: Palliative care visit attmpted twice, once at 12:05 ans once at 1:20 pm . Both times, patient was sleeping very deeply and no family present. No evidence discomfort or distress. Nurse on outside of room reported she had been resiting like that for a long while. Will attempt to visit at another time. Chat reviewed.
[2017-02-27] MEDS: OXYCODONE HCL IR 5 MG TABLET PO PRN ×3 (03:04→17:38)
[2017-02-27 05:07] LABS: HEMATOCRIT 36.1 % (36.0-47.0); HEMOGLOBIN 12.1 g/dL (12.0-15.5); HGB HCT DIFFERENCE 0.2; MEAN CORPUSCULAR HEMOGLOBIN 34.1 pg (27.0-33.4); MEAN CORPUSCULAR HGB CONC 33.4 g/dL (32.0-36.0); MEAN CORPUSCULAR VOLUME 102 fl (80-97); RED BLOOD COUNT 3.54 10^6/uL (3.72-5.28); RED CELL DISTRIBUTION WIDTH 14.2 % (11.5-14.0); WHITE BLOOD COUNT 3.4 10^3/uL (4.0-10.5)
[2017-02-27 05:32] LABS: ALANINE AMINOTRANSFERASE 89 U/L (9-52); ALBUMIN 3.9 g/dL (3.5-5.0); ALKALINE PHOSPHATASE 67 U/L (38-126); ANION GAP 10 (5-19); ASPARTATE AMINO TRANSFERASE 92 U/L (14-36); BILIRUBIN,DIRECT 0.6 mg/dL (0.0-0.4); BILIRUBIN,TOTAL 0.8 mg/dL (0.2-1.3); BLOOD UREA NITROGEN 23 mg/dL (7-20); CALCIUM 10.2 mg/dL (8.4-10.2); CARBON DIOXIDE 18 mmol/L (22-30); CHLORIDE 109 mmol/L (98-107); CREATININE RESULT 1.31 mg/dL (0.52-1.25); GLUCOSE 89 mg/dL (75-110); MAGNESIUM 2.5 mg/dL (1.6-2.3); POTASSIUM 3.4 mmol/L (3.6-5.0); SODIUM 137.2 mmol/L (137-145); TOTAL PROTEIN 8.1 g/dL (6.3-8.2)
[2017-02-27] MEDS: HEPARIN SOD (PORCINE) 5,000 UNIT/ML 1 ML SYRINGE SUBCUT SCH ×3 (05:58→21:51)
[2017-02-27] MEDS: NORMAL SALINE 1000 ML 1,000 ML IV PRN (08:03)
[2017-02-27] MEDS: LAMIVUDINE PO SCH (09:17)
[2017-02-27] MEDS: ABACAVIR PO SCH (09:17)
[2017-02-27] MEDS: DOLUTEGRAVIR PO SCH (09:17)
[2017-02-27] MEDS: AMITRIPTYLINE HCL 25 MG TABLET PO SCH (09:17)
[2017-02-27] MEDS: LACTULOSE SYRUP 20 GM/30 ML UDCUP PO SCH ×2 (09:17→21:51)
[2017-02-27] MEDS: PREGABALIN 75 MG CAPSULE PO SCH (09:17)
[2017-02-27] MEDS ORDERED: LAMIVUDI PO SCH (10:00)
[2017-02-27] MEDS ORDERED: DOLUTEGRAVIR PO SCH (10:00)
[2017-02-27] MEDS ORDERED: ABACAVIR PO SCH (10:00)
[2017-02-27] MEDS ORDERED: METOPROLOL SUCCINATE 50 MG TAB.SR.24H PO SCH (10:00)
[2017-02-27] MEDS: AMLODIPINE BESYLATE 5 MG TABLET PO SCH (11:57)
[2017-02-27] MEDS ORDERED: POTASSIUM CHLORIDE 10 MEQ TABLET.SA PO ONE (13:00)
--- NOTE | 2017-02-27 14:15 | PDOC PROGRESS REPORT ---
Subjective Progress Note for:: 02/27/17 Subjective:: Patient had episode of hypotension overnight requiring 1 L normal saline bolus. Patient denies current usage of cocaine, but her urine toxicology is positive. Patient denies chest pain, shortness of breath, fever, chills, headache, nausea , vomiting, constipation, abdominal pain, lower extremity swelling. Physical Exam Vital Signs: Temp Pulse Resp BP Pulse Ox 98.1 F 94 16 90/77 L 100 02/27/17 04:00 02/27/17 07:00 02/27/17 04:00 02/27/17 04:30 02/27/17 04:00 Intake & Output 02/26/17 02/27/17 02/28/17 06:59 06:59 06:59 Intake Total 2980 Balance 2980 Weight 67.9 kg Exam: General: Awake, alert, oriented 3, no acute respiratory distress HEENT: AT/NC, PERRL,EOMI, oropharynx is moist, pink, no scleral icterus, no conjunctival injection Neck: No JVD, trachea midline Chest: Clear to auscultation bilaterally, no wheezes rhonchi or rales; CV: Regular rate and rhythm, normal S1 and S2, no rub or gallop; +2/6 sm Abdomen: Soft, nontender to palpation, nondistended, active bowel sounds; no rebound, rigidity, or guarding Extremities: No cyanosis, clubbing or edema Neuro: Cranial nerves II through XII are grossly intact without focal deficits Psych: Normal mood and affect Results Laboratory Results: 02/27/17 04:42 02/27/17 04:42 02/27/17 02/27/17 04:42 04:42 WBC 3.4 L RBC 3.54 L Hgb 12.1 Hct 36.1 MCV 102 H MCH 34.1 H MCHC 33.4 RDW 14.2 H Plt Count 138 L Sodium 137.2 Potassium 3.4 L Chloride 109 H Carbon Dioxide 18 L Anion Gap 10 BUN 23 H Creatinine 1.31 H Est GFR ( Amer) 50 L Est GFR (Non-Af Amer) 41 L Glucose 89 Calcium 10.2 Magnesium 2.5 H Total Bilirubin 0.8 AST 92 H ALT 89 H Alkaline Phosphatase 67 Total Protein 8.1 Albumin 3.9 Impressions: Chest X-Ray 02/24/17 23:08 IMPRESSION: Subtle findings involving the left lung base may, in the appropriate clinical setting, represent a developing airspace process. Recommend clinical correlation. Head CT 02/26/17 00:00 IMPRESSION: No acute findings. Chronic infarct of the anterior right basal ganglia. Assessment & Plan - Diagnosis (1) Orthostatic hypotension Is this a current diagnosis for this admission?: YesPlan: Patient with syncope and collapse likely secondary to this. Begin patient on IV fluids. Stop doxepin, Norvasc, and amitriptyline. Will place patient on Cozaar for her hypertension if needed. Patient is not a candidate for beta-ulysses secondary to her cocaine usage. Will attempt to avoid vasodilatory medication in light of her orthostasis, but If Needed will consider Florinef or midodrine. (2) Cocaine abuse Is this a current diagnosis for this admission?: YesPlan: Advised to stop usage. Patient is not forthcoming with use. (3) HIV (human immunodeficiency virus infection) Is this a current diagnosis for this admission?: YesPlan: patient currently on Triumeq. (4) Light chain disease, kappa type Is this a current diagnosis for this admission?: YesPlan: Dr. Olivera is consulted and has been treating patient for multiple myeloma. (5) Altered mental status Qualifiers: Altered mental status type: somnolence Qualified Code(s): R40.0 - Somnolence Is this a current diagnosis for this admission?: YesPlan: patient appears to be much improved, and this is likely related to her polypharmacy and orthostasis. Also confounding this is her illicit drug use. (6) Opiate dependence Qualifiers: Substance use status: uncomplicated Qualified Code(s): F11.20 - Opioid dependence, uncomplicated Is this a current diagnosis for this admission?: YesPlan: Decrease oxycodone to 5mg po q6hp. (7) Tobacco abuse Is this a current diagnosis for this admission?: Yes (8) hx of basal ganglia infarct Is this a current diagnosis for this admission?: Yes - Time Time Spent with patient: 35 or more minutes Medications reviewed and adjusted accordingly: Yes Anticipated discharge: SNF - Inpatient Certification Based on my medical assessment, after consideration of the patient's comorbidities, presenting symptoms, or acuity I expect that the services needed warrant INPATIENT care.: Yes I certify that my determination is in accordance with my understanding of Medicare's requirements for reasonable and necessary INPATIENT services [42 CFR 412.3e].: Yes Medical Necessity: Need For IV Fluids Post Hospital Care: D/C [facility] Documentation
[2017-02-27] MEDS ORDERED: AMITRIPTYLINE HCL 25 MG TABLET PO SCH (22:00)
[2017-02-27] MEDS ORDERED: AMITRIPTYLINE HCL 50 MG TABLET PO SCH (22:00)
[2017-02-28] MEDS: OXYCODONE HCL IR 5 MG TABLET PO PRN ×3 (00:21→20:16)
[2017-02-28] MEDS: NORMAL SALINE 1000 ML 1,000 ML IV PRN ×2 (00:22→05:59)
[2017-02-28] MEDS ORDERED: KETOROLAC TROMETHAMINE INJ/PF 30 MG/1 ML SDV ONE (02:32)
[2017-02-28] MEDS ORDERED: KETOROLAC TROMETHAMINE INJ/PF 30 MG/1 ML SDV IV ONE (03:15)
[2017-02-28] MEDS: HEPARIN SOD (PORCINE) 5,000 UNIT/ML 1 ML SYRINGE SUBCUT SCH ×3 (06:00→22:05)
[2017-02-28 07:18] LABS: BETA-2 MICROGLOBULIN 5.2 mg/L (0.6-2.4)
--- NOTE | 2017-02-28 09:17 | CONSULTATION REPORT E ---
Consultation Report NAME: NATHANIEL DOMINGUEZ : 1955 AGE: 61Y DATE: 02/27/2017 ROOM: 318 B TO: VICENTE VALADEZ M.D. FROM: MARK BARRIGA M.D. Requesting Physician Patient referred by Dr. Gordon. REASON FOR REFERRAL: Plasma cell dyscrasia, Waldenstrom's macroglobulinemia. HISTORY OF PRESENT ILLNESS: The patient is a 61-year-old woman who was diagnosed with Waldenstrom's macroglobulinemia in 01/2017. She had presented with altered mental status, hyperviscosity, and had a bone marrow biopsy that showed increased plasma cells. Her M-spike was greater than 3. She has IgM-kappa Waldenstrom's macroglobulinemia. She was started on plasmapheresis and has since received multiple plasmaphereses at [place]. She was recently discharged home. She was started on Velcade as well as Rituxan. She tells me that over the weekend, she noted progressively worsening dizziness and lethargy, and she fell at home and was in the emergency room and was admitted. She tells me that since admission, she has been doing a lot better. She has no fever. PHYSICAL EXAMINATION: GENERAL: On exam, she is an elderly woman, not acutely ill looking. She was alert and oriented to time, place, and person. She was able to give me the history up until the time she was admitted. DIAGNOSTIC DATA: White count is 6.1, hemoglobin 12.7, platelet count 132. Sodium is 137, potassium 3.4, BUN is 23, creatinine is 1.3, total protein 8.1, albumin 3.9. Serum protein electrophoresis and serum free light chains pending. Serum viscosity pending. IMPRESSION AND PLAN: The patient is a 61-year-old with Waldenstrom's macroglobulinemia. She has been presented with altered mental status and hyperviscosity. I have requested a repeat serum viscosity as well as serum protein electrophoresis and serum free light chains. I would like her to have a Port-A-Cath placed if that is a possibility during this admission. She has very poor venous access. The plan is to continue with her chemotherapy on an outpatient basis. If she is stable and able to be discharged, I will be glad to see her back in the office next week for followup. I thank you for this consultation and for allowing me to be part of her care. DICTATING PHYSICIAN: VICENTE VALADEZ M.D. [id number] PHY#: [id number] ID: [id number] JOB#: [id number] ACCT: [id number] cc:VICENTE VALADEZ M.D. >
[2017-02-28] MEDS: LACTULOSE SYRUP 20 GM/30 ML UDCUP PO SCH ×2 (09:20→22:05)
[2017-02-28] MEDS: LAMIVUDINE PO SCH (09:20)
[2017-02-28] MEDS: ABACAVIR PO SCH (09:20)
[2017-02-28] MEDS: PREGABALIN 75 MG CAPSULE PO SCH (09:20)
[2017-02-28] MEDS: DOLUTEGRAVIR PO SCH (09:20)
[2017-02-28 09:39] LABS: ABSOLUTE EOSINOPHILS # (AUTO) 0.1 10^3/uL (0.0-0.6); ABSOLUTE MONOCYTES (AUTO) 0.5 10^3/uL (0.1-1.4); ABSOLUTE NEUT (AUTO) 1.3 10^3/uL (1.7-8.2); BASOPHILS % (AUTO) 0.5 % (0-2); EOSINOPHILS % (AUTO) 4.8 % (0-6); HEMATOCRIT 32.5 % (36.0-47.0); HGB HCT DIFFERENCE 0.5; LYMPHOCYTES % (AUTO) 35.8 % (13-45); MEAN CORPUSCULAR HEMOGLOBIN 34.5 pg (27.0-33.4); MEAN CORPUSCULAR HGB CONC 33.8 g/dL (32.0-36.0); MEAN CORPUSCULAR VOLUME 102 fl (80-97); MONOCYTES % (AUTO) 15.7 % (3-13); RED BLOOD COUNT 3.18 10^6/uL (3.72-5.28); RED CELL DISTRIBUTION WIDTH 13.7 % (11.5-14.0); SEGMENTED NEUTROPHILS % (AUTO) 43.2 % (42-78); WHITE BLOOD COUNT 2.9 10^3/uL (4.0-10.5)
[2017-02-28 09:52] LABS: ANION GAP 11 (5-19); BLOOD UREA NITROGEN 12 mg/dL (7-20); CALCIUM 10.3 mg/dL (8.4-10.2); CARBON DIOXIDE 19 mmol/L (22-30); CHLORIDE 112 mmol/L (98-107); CREATININE RESULT 1.24 mg/dL (0.52-1.25); GLUCOSE 114 mg/dL (75-110); POTASSIUM 3.5 mmol/L (3.6-5.0); SODIUM 142.4 mmol/L (137-145)
[2017-02-28] MEDS ORDERED: LOSARTAN POTASSIUM 25 MG TABLET PO ONE (11:45)
--- NOTE | 2017-02-28 21:11 | PDOC PROGRESS REPORT ---
Subjective Progress Note for:: 02/28/17 Subjective:: Patient is much improved today. Complains of neuropathy pain. Patient denies chest pain, shortness of breath, fever, chills, headache, nausea , vomiting, constipation, abdominal pain, lower extremity swelling. Physical Exam Vital Signs: Temp Pulse Resp BP Pulse Ox 98.3 F 94 16 112/83 100 02/28/17 05:19 02/28/17 05:20 02/28/17 05:19 02/28/17 05:20 02/28/17 05:19 Intake & Output 02/27/17 02/28/17 03/01/17 06:59 06:59 06:59 Intake Total 2980 4372 Balance 2980 4372 Weight 67.9 kg Exam: General: Awake, alert, oriented 3, no acute respiratory distress HEENT: AT/NC, PERRL,EOMI, oropharynx is moist, pink, no scleral icterus, no conjunctival injection Neck: No JVD, trachea midline Chest: Clear to auscultation bilaterally, no wheezes rhonchi or rales; CV: Regular rate and rhythm, normal S1 and S2, no rub or gallop; +2/6 sm Abdomen: Soft, nontender to palpation, nondistended, active bowel sounds; no rebound, rigidity, or guarding Extremities: No cyanosis, clubbing or edema Neuro: Cranial nerves II through XII are grossly intact without focal deficits Psych: Normal mood and affect Results Laboratory Results: 02/27/17 04:42 02/27/17 04:42 02/28/17 06:39 Ammonia < 8.7 L Impressions: Chest X-Ray 02/24/17 23:08 IMPRESSION: Subtle findings involving the left lung base may, in the appropriate clinical setting, represent a developing airspace process. Recommend clinical correlation. Head CT 02/26/17 00:00 IMPRESSION: No acute findings. Chronic infarct of the anterior right basal ganglia. Assessment & Plan - Diagnosis (1) Orthostatic hypotension Is this a current diagnosis for this admission?: YesPlan: Patient with syncope and collapse likely secondary to this. Stop doxepin, Norvasc, and amitriptyline. Will place patient on Cozaar Patient is not a candidate for beta-ulysses secondary to her cocaine usage. Will attempt to avoid vasodilatory medication in light of her orthostasis, but If Needed will consider Florinef. Discussed this at length with her daughter. (2) Cocaine abuse Is this a current diagnosis for this admission?: YesPlan: Advised to stop usage. Patient is not forthcoming with use. (3) HIV (human immunodeficiency virus infection) Is this a current diagnosis for this admission?: YesPlan: patient currently on Triumeq. (4) Light chain disease, kappa type Is this a current diagnosis for this admission?: YesPlan: Dr. Olivera is consulted and has been treating patient for multiple myeloma. (5) Altered mental status Qualifiers: Altered mental status type: somnolence Qualified Code(s): R40.0 - Somnolence Is this a current diagnosis for this admission?: YesPlan: patient appears to be much improved, and this is likely related to her polypharmacy and orthostasis. Also confounding this is her illicit drug use. (6) Opiate dependence Qualifiers: Substance use status: uncomplicated Qualified Code(s): F11.20 - Opioid dependence, uncomplicated Is this a current diagnosis for this admission?: YesPlan: Decrease oxycodone to 5mg po q6hp. (7) Tobacco abuse Is this a current diagnosis for this admission?: Yes (8) hx of basal ganglia infarct Is this a current diagnosis for this admission?: Yes - Plan Summary Plan Summary: Due to issues with patient home situation, patient would be discharged today but will be discharged in the morning. Have discussed with patient's daughter at length patient's care and have discussed with her possibly assisted living or if patient will consent SNIF placement.
[2017-02-28] MEDS: LOSARTAN POTASSIUM 25 MG TABLET PO SCH (22:04)
[2017-03-01] MEDS ORDERED: IBUPROFEN 400 MG TABLET PO PRN (00:47)
[2017-03-01] MEDS ORDERED: IBUPROFEN 400 MG TABLET PO ONE (01:00)
[2017-03-01] MEDS: OXYCODONE HCL IR 5 MG TABLET PO PRN (04:51)
[2017-03-01] MEDS: HEPARIN SOD (PORCINE) 5,000 UNIT/ML 1 ML SYRINGE SUBCUT SCH (06:03)
[2017-03-01 07:09] LABS: FREE KAPPA LIGHT CHAINS 623.24 mg/L (3.30-19.40); FREE LAMBDA LIGHT CHAINS 16.51 mg/L (5.71-26.30); KAPPA LAMBDA RATIO 37.75 (0.26-1.65)
[2017-03-01 07:13] LABS: VISCOSITY SERUM 2.2 rel.saline (1.6-1.9)
[2017-03-01 08:23] VITALS: BP 172/90
[2017-03-01] MEDS: PREGABALIN 75 MG CAPSULE PO SCH (10:16)
[2017-03-01] MEDS: ABACAVIR PO SCH (10:16)
[2017-03-01] MEDS: DOLUTEGRAVIR PO SCH (10:16)
[2017-03-01] MEDS: LAMIVUDINE PO SCH (10:16)
[2017-03-01] MEDS: LOSARTAN POTASSIUM 25 MG TABLET PO SCH (10:17)
[2017-03-01] MEDS: LACTULOSE SYRUP 20 GM/30 ML UDCUP PO SCH (10:17)
[2017-03-02 15:39] LABS: ALBUMIN 3 3.7 g/dL (2.9-4.4); ALPHA-1-GLOBULIN 0.2 g/dL (0.0-0.4); ALPHA-2-GLOBULIN 3 0.6 g/dL (0.4-1.0); BETA GLOBULIN 0.4 g/dL (0.7-1.3); GLOBULIN TTL 3.5 g/dL (2.2-3.9); IMMUNOGLOBULIN G 413 mg/dL (700-1600); MONOCLONAL-SPIKE 1.8 g/dL (Not Observed); PROTEIN TOTAL SERUM 7.2 g/dL (6.0-8.5)
[2017-03-02 16:07] LABS: IMMUNOGLOBULIN A 20 mg/dL (87-352); IMMUNOGLOBULIN M 2667 mg/dL (26-217)
--- NOTE | 2017-03-05 15:04 | PDOC DISCHARGE SUMMARY ---
General - Admit/Disc Date/PCP Admission Date/Primary Care Provider: 02/26/17 10:42 Discharge Date: 03/01/17 - Discharge Diagnosis (1) Orthostatic hypotension Is this a current diagnosis for this admission?: Yes (2) Cocaine abuse Is this a current diagnosis for this admission?: Yes (3) HIV (human immunodeficiency virus infection) Is this a current diagnosis for this admission?: Yes (4) Light chain disease, kappa type Is this a current diagnosis for this admission?: Yes (5) Altered mental status Is this a current diagnosis for this admission?: Yes (6) Opiate dependence Is this a current diagnosis for this admission?: Yes (7) Tobacco abuse Is this a current diagnosis for this admission?: Yes (8) hx of basal ganglia infarct Is this a current diagnosis for this admission?: Yes - Additional Information Resuscitation Status: Full Code Discharge Diet: Regular Discharge Activity: Activity As Tolerated, Slowly Increase Activity, Supervised Activity Home Medications: Lactulose [Constulose 10 gm/15 mL Oral Solution] 30 ml PO Q12 02/25/17 Oxycodone HCl [Oxycodone HCl 10 MG Tablet] 10 mg PO Q6HP PRN 02/25/17 Prochlorperazine Maleate [Compazine 10 mg Tablet] 10 mg PO Q6HP PRN 02/25/17 Abacavir/Dolutegravir/Lamivudi [Triumeq Tablet] 1 tab PO DAILY 02/26/17 Pregabalin [Lyrica 75 mg Capsule] 75 mg PO DAILY capsule 02/28/17 Walker [Folding Walker] 1 each MC ASDIR PRN #1 each 02/28/17 Losartan Potassium [Cozaar 25 mg Tablet] 12.5 mg PO DAILY #30 tablet 03/01/17 History of Present Illness History of Present Illness: Please see H+P for full HPI Hospital Course Hospital Course: Patient was found to be profoundly orthostatic and was given volume repletion. While here, stopped doxepin, Norvasc, and amitriptyline. Placed patient on Cozaar for hypertension. Patient was also found to be cocaine positive though she denies heavy use. Patient lyrica was also decreased. Patient was continued on lactulose which also helped improved her altered mentation. Patient is not a good candidate for midodrine secondary to her use of cocaine. Patient is advised to instruct providers to take her blood pressure standing. Patient is also advised to get up slowly for any changes in position. Home health was established. Physical Exam Vital Signs: Temp Pulse Resp BP Pulse Ox 98.5 F 100 20 151/90 H 100 03/01/17 04:44 03/01/17 04:44 03/01/17 04:44 03/01/17 04:44 03/01/17 04:44 Intake & Output 02/28/17 03/01/17 03/02/17 06:59 06:59 06:59 Intake Total 4372 1697 Output Total 3 Balance 4372 1694 Weight 66.9 kg Exam: General: Awake, alert, oriented 3, no acute respiratory distress HEENT: AT/NC, PERRL,EOMI, oropharynx is moist, pink, no scleral icterus, no conjunctival injection Neck: No JVD, trachea midline Chest: Clear to auscultation bilaterally, no wheezes rhonchi or rales; CV: Regular rate and rhythm, normal S1 and S2, no rub or gallop; +2/6 sm Abdomen: Soft, nontender to palpation, nondistended, active bowel sounds; no rebound, rigidity, or guarding Extremities: No cyanosis, clubbing or edema Neuro: Cranial nerves II through XII are grossly intact without focal deficits Psych: Normal mood and affect Results Laboratory Results: 02/28/17 09:05 02/28/17 09:05 02/28/17 02/28/17 09:05 09:05 WBC 2.9 L RBC 3.18 L Hgb 11.0 L Hct 32.5 L MCV 102 H MCH 34.5 H MCHC 33.8 RDW 13.7 Plt Count 156 Seg Neutrophils % 43.2 Lymphocytes % 35.8 Monocytes % 15.7 H Eosinophils % 4.8 Basophils % 0.5 Absolute Neutrophils 1.3 L Absolute Lymphocytes 1.0 Absolute Monocytes 0.5 Absolute Eosinophils 0.1 Absolute Basophils 0.0 Sodium 142.4 Potassium 3.5 L Chloride 112 H Carbon Dioxide 19 L Anion Gap 11 BUN 12 Creatinine 1.24 Est GFR ( Amer) 53 L Est GFR (Non-Af Amer) 44 L Glucose 114 H Calcium 10.3 H Impressions: Chest X-Ray 02/24/17 23:08 IMPRESSION: Subtle findings involving the left lung base may, in the appropriate clinical setting, represent a developing airspace process. Recommend clinical correlation. Head CT 02/26/17 00:00 IMPRESSION: No acute findings. Chronic infarct of the anterior right basal ganglia. Qualifiers PATEINT BEING DISCHARGED WITH ANY OF THE FOLLOWING DIAGNOSIS?: No Plan Time Spent: Less than 30 Minutes
== END 2017-03-01 12:13 | disposition home health service (06) | DRG 312 ==
LOC: ER 21:44 → INTOOBSV 02-25 05:52 → EH 02-25 05:52 → 3W 02-25 08:46 → OBSVTOIN 02-26 10:42
PROVIDERS: ADMIT Family Medicine; ATTEND Family Medicine
DX: I95.1 Orthostatic hypotension (principal); B20 Human immunodeficiency virus [HIV] disease; N39.0 Urinary tract infection, site not specified; C90.00 Multiple myeloma not having achieved remission; F11.20 Opioid dependence, uncomplicated; F19.20 Other psychoactive substance dependence, uncomplicated; D80.8 Other immunodeficiencies with predominantly antibody defects; B19.20 Unspecified viral hepatitis C without hepatic coma; F14.90 Cocaine use, unspecified, uncomplicated; I12.9 Hypertensive chronic kidney disease with stage 1 through stage 4 chronic kidney disease, or unspecified chronic kidney disease; N18.3 Chronic kidney disease, stage 3 (moderate); G89.29 Other chronic pain; C88.0 Waldenstrom macroglobulinemia; W18.30XA Fall on same level, unspecified, initial encounter; Y93.89 Activity, other specified; Y92.230 Patient room in hospital as the place of occurrence of the external cause; Z87.891 Personal history of nicotine dependence; Z86.73 Personal history of transient ischemic attack (TIA), and cerebral infarction without residual deficits
CPT/HCPCS: 36415; 51701; 70450; 71010; 80048; 80053; 80307; 81001; 82140; 82232; 82550; 82553; 83615; 83735; 83883; 84443; 84484; 85025; 85027; 85810; 86320; 87040; 87086; 93005; 93010; 93306; 99285; G0378; G8978-GP; G8979-GP; G8980-GP; J0744; J1644; J1885; J3490; J7030

== ENCOUNTER 2017-04-25 00:29 | Emergency (ER) | payer MEDICARE, MEDICAID ==
[2017-04-25 01:55] LABS: HEMATOCRIT 36.9 % (36.0-47.0); HEMOGLOBIN 12.3 g/dL (12.0-15.5); MEAN CORPUSCULAR HEMOGLOBIN 33.4 pg (27.0-33.4); MEAN CORPUSCULAR HGB CONC 33.5 g/dL (32.0-36.0); MEAN CORPUSCULAR VOLUME 100 fl (80-97); RED BLOOD COUNT 3.69 10^6/uL (3.72-5.28); RED CELL DISTRIBUTION WIDTH 13.4 % (11.5-14.0); WHITE BLOOD COUNT 4.6 10^3/uL (4.0-10.5)
[2017-04-25 02:20] LABS: BASOPHILS % (MANUAL) 0 % (0-2); EOSINOPHILS % (MANUAL) 1 % (0-6); LYMPHOCYTES % (MANUAL) 32 % (13-45); TOTAL CELLS COUNTED 100
[2017-04-25 02:21] LABS: CREATINE KINASE MB 0.32 ng/mL (<4.55)
[2017-04-25 02:22] LABS: OVALOCYTES SLIGHT; POIKILOCYTOSIS SLIGHT; TEAR DROP CELLS SLIGHT; TOXIC GRANULATION SLIGHT
[2017-04-25 02:25] LABS: ALANINE AMINOTRANSFERASE 51 U/L (9-52); ALBUMIN 3.9 g/dL (3.5-5.0); ALKALINE PHOSPHATASE 67 U/L (38-126); ANION GAP 8 (5-19); ASPARTATE AMINO TRANSFERASE 53 U/L (14-36); BILIRUBIN,DIRECT 0.4 mg/dL (0.0-0.4); BILIRUBIN,TOTAL 0.6 mg/dL (0.2-1.3); BLOOD UREA NITROGEN 19 mg/dL (7-20); CALCIUM 10.9 mg/dL (8.4-10.2); CARBON DIOXIDE 25 mmol/L (22-30); CHLORIDE 110 mmol/L (98-107); CREATINE KINASE 31 U/L (30-135); GLUCOSE 121 mg/dL (75-110); POTASSIUM 3.3 mmol/L (3.6-5.0); SODIUM 143.3 mmol/L (137-145); TOTAL PROTEIN 7.9 g/dL (6.3-8.2)
[2017-04-25 02:26] LABS: TROPONIN I < 0.012 ng/mL
[2017-04-25] MEDS ORDERED: NORMAL SALINE 1000 ML 1,000 ML IV PRN (06:52)
[2017-04-25] MEDS ORDERED: NORMAL SALINE 1000 ML 1,000 ML IV ONE (06:55)
[2017-04-25 08:26] LABS: APPEARANCE,URINE CLOUDY; BILIRUBIN,URINE NEGATIVE (NEGATIVE); GLUCOSE, URINE NEGATIVE (NEGATIVE); KETONES,URINE NEGATIVE (NEGATIVE); LEUKOCYTE ESTERASE,URINE TRACE (NEGATIVE); NITRITE,URINE NEGATIVE (NEGATIVE); PROTEIN,URINE 100 mg/dL (NEGATIVE); UROBILINOGEN,URINE NEGATIVE mg/dL (<2.0)
[2017-04-25] MEDS ORDERED: NITROFURANTOIN MONOHYD/M-CRYST 100 MG CAPSULE PO ONE (09:19)
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
--- NOTE | 2017-04-25 12:03 | EKG REPORT ---
SEVERITY:- BORDERLINE ECG - SINUS TACHYCARDIA PROBABLE LEFT ATRIAL ABNORMALITY BORDERLINE R WAVE PROGRESSION, ANTERIOR LEADS : Confirmed by: Gricelda Green MD 25-Apr-2017 12:02:56
[2017-04-25] MEDS ORDERED: OXYCODONE HCL IR 5 MG TABLET PO ONE (14:54)
[2017-04-25] MEDS ORDERED: LOSARTAN POTASSIUM 25 MG TABLET PO ONE (14:55)
[2017-04-25 16:25] VITALS: BP 163/111
== END 2017-04-25 15:44 | disposition home or self-care (01) ==
LOC: ER 00:29
DX: N39.0 Urinary tract infection, site not specified (principal); E86.0 Dehydration; R53.1 Weakness; B20 Human immunodeficiency virus [HIV] disease; B19.20 Unspecified viral hepatitis C without hepatic coma
CPT/HCPCS: 93005; 99285; 51701; 36415; 87086; 89055; 82553; 82550; 85025; 87088; 80053; 81001; 84484; 87186; 87493 ×2; 93010; J7030; A9270 ×3; J8499

== ENCOUNTER 2017-04-28 17:48 | Emergency (ER) | payer MEDICARE, MEDICAID ==
[2017-04-28] MEDS ORDERED: ACETAMINOPHEN 325 MG TABLET PO ONE (19:08)
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
--- NOTE | 2017-04-28 19:12 | RADIOLOGY REPORT (SQ) ---
EXAM DESCRIPTION: HIP LEFT AP/LATERAL COMPLETED DATE/TIME: 04/28/2017 6:51 pm REASON FOR STUDY: fall COMPARISON: 11/24/2016 NUMBER OF VIEWS: Two views. TECHNIQUE: AP pelvis and additional frog-leg view of the left hip. LIMITATIONS: None. FINDINGS: MINERALIZATION: Normal. LEFT HIP: No fracture or dislocation. No worrisome bone lesions. RIGHT HIP: No fracture or dislocation. No worrisome bone lesions. PUBIS AND ISCHIUM: No fracture. PELVIS: No fracture. SACRUM: No fracture or dislocation. No worrisome bone lesions. LOWER LUMBAR SPINE: No fracture or dislocation. No worrisome bone lesions. No significant disc disea se. SOFT TISSUES: Stable configuration of hyperdensities overlying the right pelvis and lower lumbar spin e. OTHER: No other significant finding. IMPRESSION: NO RADIOGRAPHIC EVIDENCE OF ACUTE INJURY. TECHNICAL DOCUMENTATION: JOB ID: [id number] [employer]- All Rights Reserved
[2017-04-28 19:23] LABS: ANION GAP 11 (5-19); BLOOD UREA NITROGEN 22 mg/dL (7-20); CALCIUM 11.5 mg/dL (8.4-10.2); CARBON DIOXIDE 23 mmol/L (22-30); CHLORIDE 109 mmol/L (98-107); CREATININE RESULT 1.29 mg/dL (0.52-1.25); GLUCOSE 100 mg/dL (75-110); POTASSIUM 3.4 mmol/L (3.6-5.0); SODIUM 143.2 mmol/L (137-145)
[2017-04-29] MEDS ORDERED: NORMAL SALINE 1000 ML 1,000 ML IV PRN (10:24)
[2017-04-29] MEDS ORDERED: POTASSIUM CHLORIDE 20 MEQ/15 ML UDCUP PO ONE (10:25)
[2017-04-29] MEDS ORDERED: ACETAMINOPHEN 325 MG TABLET PO ONE (10:26)
--- NOTE | 2017-04-29 10:29 | ER Document Report ---
Doctor's Note Notes: 04/29/17 10:26 This is a 61-year-old female with a history of HIV, Waldenstrm's macroglobulinemia (status post chemo 2), peripheral neuropathy (ambulates with a walker). The patient reportedly lives by herself but stays with her daughter often. The patient states that she was trying to get into the bathroom and her walker will not fit and she was trying to grab the side railings and had fallen. She was thus taken to the emergency room by EMS for evaluation after fall. X-rays of the hip showed no obvious fracture and the nurse reports that she has been up and ambulating with her walker. The patient does complain of a headache where she hit her head in the occipital area. She appears frail and slightly dehydrated. She states she does not have much of an appetite. The patient's daughter had refused to take her home last night and thus we are waiting on social work till tomorrow. Given this, I will give the patient some IV fluids for some mild dehydration, potassium repletion, Tylenol for the headache and we will encourage her to eat her meals and we will have the tech assisted with ambulation during the day. Patient also mentioned that she had been diagnosed with a UTI 1 week ago but had not taken her antibiotics. While she is here, will check a urine analysis and I will order a urine culture. 04/29/17 11:18
[2017-04-29 10:37] LABS: HEMATOCRIT 35.6 % (36.0-47.0); HEMOGLOBIN 12.5 g/dL (12.0-15.5); HGB HCT DIFFERENCE 1.9; MEAN CORPUSCULAR HEMOGLOBIN 34.4 pg (27.0-33.4); MEAN CORPUSCULAR HGB CONC 35.1 g/dL (32.0-36.0); MEAN CORPUSCULAR VOLUME 98 fl (80-97); RED BLOOD COUNT 3.63 10^6/uL (3.72-5.28); RED CELL DISTRIBUTION WIDTH 13.7 % (11.5-14.0); WHITE BLOOD COUNT 3.7 10^3/uL (4.0-10.5)
--- NOTE | 2017-04-29 10:52 | RADIOLOGY REPORT (SQ) ---
EXAM DESCRIPTION: CT HEAD WITHOUT COMPLETED DATE/TIME: 04/29/2017 10:41 am REASON FOR STUDY: fell, hit head. [facility]UNT COMPARISON: 02/26/2017 TECHNIQUE: Axial images acquired through the brain without intravenous contrast. Images reviewed wi th bone, brain and subdural windows. Images stored on PACS. All CT scanners at this facility use dose modulation, iterative reconstruction, and/or weight based d osing when appropriate to reduce radiation dose to as low as reasonably achievable (ALARA). [facility]: Dose Right [facility]: CareDose [facility]: Dose Right [facility]: Teradose 4D [facility]: ONtheAIR RADIATION DOSE: Up-to-date CT equipment and radiation dose reduction techniques were employed. CTDIv ol: 64.6 mGy. DLP: 1163 mGy-cm. mGy. LIMITATIONS: None. FINDINGS: VENTRICLES: Prominent. CEREBRUM: No masses. No hemorrhage. No midline shift. Areas of low density in the white matter mos t likely due to chronic micro-vascular ischemic change. No evidence for acute infarction. CEREBELLUM: No masses. No hemorrhage. No alteration of density. No evidence for acute infarction. EXTRAAXIAL SPACES: Mild age-related involutional change. No fluid collections. No masses. ORBITS AND GLOBE: No intra- or extraconal masses. Normal contour of globe without masses. CALVARIUM: No fracture. PARANASAL SINUSES: No fluid or mucosal thickening. SOFT TISSUES: Small posterior scalp hematoma. OTHER: No other significant finding. IMPRESSION: SMALL SCALP HEMATOMA. NO FRACTURE OR ACUTE INTRACRANIAL PROCESS. TECHNICAL DOCUMENTATION: JOB ID: [id number] Quality ID # [id number]: Final reports with documentation of one or more dose reduction techniques (e.g., Au tomated exposure control, adjustment of the mA and/or kV according to patient size, use of iterative reconstruction technique) 2010 [employer]- All Rights Reserved
[2017-04-29 10:59] LABS: BASOPHILS % (MANUAL) 1 % (0-2); EOSINOPHILS % (MANUAL) 1 % (0-6); LYMPHOCYTES % (MANUAL) 38 % (13-45); RBC MORPHOLOGY COMMENT NORMO-CYTIC/CHROMIC; TOTAL CELLS COUNTED 100
[2017-04-29] MEDS ORDERED: ALPRAZOLAM 0.5 MG TABLET PO SCH (11:00)
[2017-04-29] MEDS ORDERED: LISINOPRIL 10 MG TABLET PO SCH (11:00)
[2017-04-29] MEDS ORDERED: AMLODIPINE BESYLATE 10 MG TABLET PO SCH (11:00)
[2017-04-29] MEDS ORDERED: VENLAFAXINE HCL 75 MG TABLET PO ONE (11:00)
[2017-04-29 18:16] VITALS: BP 154/104
[2017-04-29] MEDS ORDERED: VENLAFAXINE HCL 75 MG TABLET PO SCH (22:00)
[2017-04-30] MEDS ORDERED: ABACAVIR PO SCH (10:00)
[2017-04-30] MEDS ORDERED: DOLUTEGRAVIR PO SCH (10:00)
[2017-04-30] MEDS ORDERED: (PENDING PHARMACY ID) (Lisinopril [Lisinopril] 20 MG) PO SCH (10:00)
[2017-04-30] MEDS ORDERED: LAMIVUDI PO SCH (10:00)
[2017-04-30] MEDS ORDERED: ALPRAZOLAM 2 MG PO SCH (10:00)
== END 2017-04-29 19:10 | disposition home or self-care (01) ==
LOC: ER 17:48
DX: M25.552 Pain in left hip (principal); I10 Essential (primary) hypertension; R51 Headache; E86.0 Dehydration; F17.200 Nicotine dependence, unspecified, uncomplicated; Z21 Asymptomatic human immunodeficiency virus [HIV] infection status
CPT/HCPCS: 36591; 99284; 96360; 36415; 83735; 85025; 80048; 73502; 70450; A9270 ×7; J7030

== ENCOUNTER 2017-10-08 19:33 | Observation (INO) | payer MEDICARE, MEDICAID ==
[2017-10-08] MEDS ORDERED: METOCLOPRAMIDE HCL INJ/PF 10 MG/2 ML SDV IV ONE (20:49)
[2017-10-08] MEDS ORDERED: NORMAL SALINE 1000 ML 1,000 ML IV ONE (21:02)
[2017-10-08] MEDS ORDERED: MORPHINE SULFATE 10 MG/ML INJ IV ONE (21:03)
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
[2017-10-08] MEDS ORDERED: FENTANYL CITRATE INJ/PF 100 MCG/2 ML AMPUL IV ONE (21:40)
[2017-10-08 21:55] LABS: HEMATOCRIT 45.6 % (36.0-47.0); HEMOGLOBIN 15.5 g/dL (12.0-15.5); MEAN CORPUSCULAR HEMOGLOBIN 33.3 pg (27.0-33.4); MEAN CORPUSCULAR HGB CONC 34.1 g/dL (32.0-36.0); MEAN CORPUSCULAR VOLUME 98 fl (80-97); PLATELET COUNT 219 10^3/uL (150-450); RED BLOOD COUNT 4.67 10^6/uL (3.72-5.28); RED CELL DISTRIBUTION WIDTH 12.4 % (11.5-14.0); WHITE BLOOD COUNT 12.8 10^3/uL (4.0-10.5)
[2017-10-08 22:04] LABS: ALANINE AMINOTRANSFERASE 57 U/L (9-52); ALBUMIN 4.8 g/dL (3.5-5.0); ALKALINE PHOSPHATASE 123 U/L (38-126); ANION GAP 13 (5-19); ASPARTATE AMINO TRANSFERASE 52 U/L (14-36); BILIRUBIN,DIRECT 0.4 mg/dL (0.0-0.4); BILIRUBIN,TOTAL 0.8 mg/dL (0.2-1.3); BLOOD UREA NITROGEN 17 mg/dL (7-20); CALCIUM 11.3 mg/dL (8.4-10.2); CARBON DIOXIDE 22 mmol/L (22-30); CHLORIDE 108 mmol/L (98-107); GLUCOSE 122 mg/dL (75-110); POTASSIUM 3.4 mmol/L (3.6-5.0); SODIUM 143.2 mmol/L (137-145); TOTAL PROTEIN 8.3 g/dL (6.3-8.2)
[2017-10-08] MEDS ORDERED: ONDANSETRON HCL INJ/PF 4 MG/2 ML SDV IV ONE (22:47)
[2017-10-08 22:48] LABS: ABSOLUTE LYMPHOCYTES# (MANUAL) 1.7 10^3/uL (0.5-4.7); ABSOLUTE MONOCYTES # (MANUAL) 0.1 10^3/uL (0.1-1.4); BASOPHILS % (MANUAL) 0 % (0-2); EOSINOPHILS % (MANUAL) 0 % (0-6); LYMPHOCYTES % (MANUAL) 13 % (13-45); MONOCYTES % (MANUAL) 1 % (3-13); SEGMENTED NEUTROPHILS % (MAN) 86 % (42-78); TOTAL CELLS COUNTED 100
[2017-10-08 22:49] LABS: PLATELET COMMENT ADEQUATE; TOXIC VACUOLATION PRESENT
[2017-10-08 22:59] LABS: APPEARANCE,URINE SLIGHTLY-CLOUDY; BILIRUBIN,URINE NEGATIVE (NEGATIVE); COLOR,URINE YELLOW; GLUCOSE, URINE NEGATIVE (NEGATIVE); KETONES,URINE TRACE mg/dL (NEGATIVE); LEUKOCYTE ESTERASE,URINE TRACE (NEGATIVE); NITRITE,URINE NEGATIVE (NEGATIVE); PROTEIN,URINE 100 mg/dL (NEGATIVE); UROBILINOGEN,URINE NEGATIVE mg/dL (<2.0)
[2017-10-08 23:04] LABS: URINE AMPHETAMINES SCREEN NEGATIVE; URINE BARBITURATES SCREEN NEGATIVE; URINE BENZODIAZEPINES SCREEN NEGATIVE; URINE COCAINE SCREEN NEGATIVE; URINE MARIJUANA (THC) SCREEN NEGATIVE; URINE METHADONE SCREEN NEGATIVE; URINE PHENCYCLIDINE SCREEN NEGATIVE
[2017-10-08] MEDS ORDERED: LORAZEPAM 1 MG TABLET PO ONE (23:36)
--- NOTE | 2017-10-09 01:16 | RADIOLOGY REPORT (SQ) ---
EXAM DESCRIPTION: CHEST SINGLE VIEW CLINICAL HISTORY: 61 years, Female, n/v COMPARISON: None. FINDINGS: Prominent interstitium, right internal jugular miniport catheter tip at the cavoatrial junction. Normal lung volume, clear parenchyma, normal cardiac silhouette, and intact bony thorax. IMPRESSION: No acute cardiopulmonary findings. 2011 [employer]- All Rights Reserved
[2017-10-09] MEDS ORDERED: LORAZEPAM INJ 2 MG/1 ML VIAL IV ONE (01:46)
[2017-10-09] MEDS ORDERED: NORMAL SALINE 1000 ML 1,000 ML IV ONE (02:19)
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
[2017-10-09] MEDS ORDERED: PROMETHAZINE HCL 25 MG SUPP.RECT PR PRN (04:20)
[2017-10-09] MEDS ORDERED: ACETAMINOPHEN 325 MG TABLET PO PRN (04:20)
[2017-10-09] MEDS ORDERED: NORMAL SALINE 1000 ML 1,000 ML IV PRN (04:20)
[2017-10-09] MEDS ORDERED: ENALAPRILAT DIHYDRATE INJ/PF 1.25 MG/1 ML SDV IV ONE (04:45)
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
[2017-10-09] MEDS: HEPARIN SOD (PORCINE) 5,000 UNIT/ML 1 ML SYRINGE SUBCUT SCH ×3 (05:48→21:50)
[2017-10-09] MEDS: OXYCODONE HCL IR 5 MG TABLET PO PRN ×2 (07:05→20:41)
[2017-10-09] MEDS: ONDANSETRON HCL INJ/PF 4 MG/2 ML SDV IV PRN ×2 (07:58→15:11)
--- NOTE | 2017-10-09 08:32 | Physician Advisory Note ---
Physician Advisor ProgressNote .: Pursuant to the plan for [facility], I have reviewed the medical record for this patient. Physician Advisor Statement: Nicely documented chronic hep C, opiate dependence. Pt with significant HTN, but could be due to inability to keep meds down. Status: Medicare pt, requiring tx in hospital x 1MN so far, appropriately brought in as Outpt Obs for now. If she does not improve sufficiently for d/c before MN on 10/09/17, please document the clinical reasons (?continued N/V/inability to tolerate po, ? ongoing hemodynamic instability, ?worsening , ...) & may appropriately change to Inpatient status this PM. Thanks! CK
[2017-10-09] MEDS ORDERED: ABACAVIR PO SCH (10:00)
[2017-10-09] MEDS ORDERED: LAMIVUDI PO SCH (10:00)
[2017-10-09] MEDS ORDERED: DOLUTEGRAVIR PO SCH (10:00)
[2017-10-09] MEDS: LORAZEPAM INJ 2 MG/1 ML VIAL IV PRN ×2 (11:07→17:54)
[2017-10-09] MEDS: ENALAPRILAT DIHYDRATE INJ/PF 1.25 MG/1 ML SDV IV SCH ×3 (11:07→22:36)
[2017-10-09] MEDS: METOPROLOL SUCCINATE 25 MG TAB.SR.24H PO SCH (11:14)
[2017-10-09] MEDS: AMLODIPINE BESYLATE 5 MG TABLET PO SCH (11:14)
[2017-10-09] MEDS: PREGABALIN 100 MG CAPSULE PO SCH ×3 (13:47→17:58)
[2017-10-09] MEDS ORDERED: NORMAL SALINE 10 ML SDV (AFTER EACH USE) IV PRN (14:17)
--- NOTE | 2017-10-09 17:24 | Progress Note ---
Provider Note Provider Note: The patient was seen on morning rounds for a follow-up of gastroenteritis with intractable nausea and vomiting. She was admitted by Dr. Decker at 3:50 AM. Upon entering the room, the patient is found sleeping but does wake easily. Reports continued nausea, but states that her emesis has improved. He is continuing to receive Zofran, Phenergan, and Ativan as needed for nausea and vomiting. Tolerated a small amount of ice chips, but has not attempted to eat or drink more than not at this time. Does report diffuse abdominal pain described as aching that is not appreciably worsened by p.o. intake. Denies loose stools. She has no other questions or concerns at this time. The patient's overnight events, nursing notes, vital signs, and laboratory reports are reviewed and noted. Will continue to follow closely.
[2017-10-09] MEDS: HYDROMORPHONE HCL INJ/PF 2 MG/ML AMPULE SUBCUT PRN (21:50)
[2017-10-09] MEDS: SENNOSIDES/DOCUSATE 8.6-50 MG 1 EACH TABLET PO SCH (21:54)
[2017-10-09] MEDS: NORMAL SALINE 10 ML SDV (SCHEDULED) IV SCH (21:54)
[2017-10-09] MEDS ORDERED: METOPROLOL TARTRATE PF/INJ 5 MG/5 ML SDV IV ONE (22:00)
[2017-10-09] MEDS: HYDRALAZINE HCL INJ/PF 20 MG/1 ML SDV IV PRN (23:52)
[2017-10-10] MEDS: LORAZEPAM INJ 2 MG/1 ML VIAL IV PRN (00:51)
[2017-10-10] MEDS ORDERED: HYDROMORPHONE HCL INJ/PF 2 MG/ML AMPULE SUBCUT ONE (01:45)
[2017-10-10] MEDS ORDERED: METOPROLOL TARTRATE PF/INJ 5 MG/5 ML SDV IV ONE ×2 (04:10→04:15)
[2017-10-10] MEDS ORDERED: HALOPERIDOL LACTATE INJ 5 MG/1 ML VIAL ONE (04:37)
[2017-10-10] MEDS ORDERED: HALOPERIDOL LACTATE INJ 5 MG/1 ML VIAL IV ONE ×2 (05:15→22:00)
[2017-10-10] MEDS: ENALAPRILAT DIHYDRATE INJ/PF 1.25 MG/1 ML SDV IV SCH ×4 (05:16→23:21)
[2017-10-10] MEDS: HEPARIN SOD (PORCINE) 5,000 UNIT/ML 1 ML SYRINGE SUBCUT SCH ×3 (05:17→22:22)
[2017-10-10 06:12] LABS: HEMATOCRIT 43.2 % (36.0-47.0); HEMOGLOBIN 14.8 g/dL (12.0-15.5); MEAN CORPUSCULAR HEMOGLOBIN 33.3 pg (27.0-33.4); MEAN CORPUSCULAR HGB CONC 34.3 g/dL (32.0-36.0); MEAN CORPUSCULAR VOLUME 97 fl (80-97); PLATELET COUNT 210 10^3/uL (150-450); RED BLOOD COUNT 4.45 10^6/uL (3.72-5.28); RED CELL DISTRIBUTION WIDTH 12.6 % (11.5-14.0); WHITE BLOOD COUNT 11.3 10^3/uL (4.0-10.5)
[2017-10-10 06:35] LABS: ANION GAP 11 (5-19); BLOOD UREA NITROGEN 15 mg/dL (7-20); CALCIUM 10.3 mg/dL (8.4-10.2); CARBON DIOXIDE 24 mmol/L (22-30); CHLORIDE 106 mmol/L (98-107); GLUCOSE 84 mg/dL (75-110); SODIUM 140.8 mmol/L (137-145)
[2017-10-10 06:39] LABS: POTASSIUM 2.9 mmol/L (3.6-5.0)
[2017-10-10] MEDS ORDERED: POTASSIUM CHLORIDE 10 MEQ TABLET.SA PO ONE (08:30)
[2017-10-10] MEDS: POTASSIUM CHLORIDE 20 MEQ/50 ML RTU IV SCH ×2 (09:29→12:00)
[2017-10-10] MEDS: NORMAL SALINE 10 ML SDV (SCHEDULED) IV SCH ×2 (09:34→22:32)
[2017-10-10] MEDS: AMLODIPINE BESYLATE 5 MG TABLET PO SCH (09:34)
[2017-10-10] MEDS: PREGABALIN 100 MG CAPSULE PO SCH ×3 (09:34→18:16)
[2017-10-10] MEDS: METOPROLOL SUCCINATE 25 MG TAB.SR.24H PO SCH (09:34)
[2017-10-10] MEDS: HYDRALAZINE HCL INJ/PF 20 MG/1 ML SDV IV PRN (09:51)
[2017-10-10] MEDS: HYDROMORPHONE HCL INJ/PF 2 MG/ML AMPULE SUBCUT PRN (11:10)
[2017-10-10 12:38] LABS: % CD 4 POS LYMPH 30.5 % (30.8-58.5); % CD 8 POS LYMPH 52.2 % (12.0-35.5); ABSOLUTE CD 4 HELPER 336 /uL (359-1519); ABSOLUTE CD 8 SUPPRESSOR 574 /uL (109-897); CD BASOPHILS 0 % (Not Estab.); CD EOSINOPHILS 0 % (Not Estab.); CD MONOCYTES 2 % (Not Estab.); CD NEUTROPHILS 86 % (Not Estab.); CD4/CD8 RATIO 0.58 (0.92-3.72); HEMOGLOBIN 14.7 g/dL (11.1-15.9); IMMATURE GRANULOCYTES 0 % (Not Estab.); LYMPHS(ABSOLUTE) 1.1 x10E3/uL (0.7-3.1); MCH 32.9 pg (26.6-33.0); MCHC 35.1 g/dL (31.5-35.7); MCV 94 fL (79-97); MONOCYTES(ABSOLUTE) 0.2 x10E3/uL (0.1-0.9); NEUTROPHILS(ABSOLUTE) 7.8 x10E3/uL (1.4-7.0); PLATELETS 272 x10E3/uL (150-379); RBC 4.47 x10E6/uL (3.77-5.28); RDW 12.8 % (12.3-15.4); WBC 9.1 x10E3/uL (3.4-10.8)
[2017-10-10] MEDS: OXYCODONE HCL IR 5 MG TABLET PO PRN ×3 (13:14→22:21)
[2017-10-10 16:36] LABS: ANION GAP 12 (5-19); BLOOD UREA NITROGEN 16 mg/dL (7-20); CALCIUM 10.3 mg/dL (8.4-10.2); CARBON DIOXIDE 21 mmol/L (22-30); CHLORIDE 107 mmol/L (98-107); GLUCOSE 73 mg/dL (75-110); POTASSIUM 3.3 mmol/L (3.6-5.0); SODIUM 139.6 mmol/L (137-145)
[2017-10-10] MEDS ORDERED: OXYCODONE HCL SR 10 MG TABLET PO PRN (16:52)
[2017-10-10] MEDS ORDERED: OXYCODONE HCL IR 5 MG TABLET PO PRN (16:55)
--- NOTE | 2017-10-10 17:03 | PDOC PROGRESS REPORT ---
Subjective Progress Note for:: 10/10/17 Subjective:: Patient is seen on morning rounds as a follow-up of her nausea and vomiting. She is found resting in bed comfortably. She is sleeping when I enter the room but does wake easily. She reports continued nausea, though improved from yesterday. She has had no further episodes of emesis. She denies diarrhea. She has no questions or concerns at this time. Reason For Visit: INTRACTABLE N/V Physical Exam Vital Signs: Temp Pulse Resp BP Pulse Ox 98.5 F 97 12 172/89 H 99 10/10/17 07:34 10/10/17 07:34 10/10/17 07:34 10/10/17 07:34 10/10/17 07:34 Intake & Output 10/09/17 10/10/17 10/11/17 06:59 06:59 06:59 Intake Total 175 1740 Output Total 100 1450 Balance 75 290 Weight 63.6 kg 63.6 kg General appearance: PRESENT: no acute distress, well-developed, well-nourished Head exam: PRESENT: atraumatic, normocephalic Eye exam: PRESENT: conjunctiva pink, EOMI, PERRLA. ABSENT: scleral icterus Ear exam: PRESENT: normal external ear exam Mouth exam: PRESENT: moist, tongue midline Neck exam: ABSENT: carotid bruit, JVD, lymphadenopathy, thyromegaly Respiratory exam: PRESENT: clear to auscultation oralia. ABSENT: rales, rhonchi, wheezes Cardiovascular exam: PRESENT: RRR. ABSENT: diastolic murmur, rubs, systolic murmur Pulses: PRESENT: normal dorsalis pedis pul Vascular exam: PRESENT: normal capillary refill GI/Abdominal exam: PRESENT: normal bowel sounds, soft, tenderness. ABSENT: distended, guarding, mass, organolmegaly, rebound Rectal exam: PRESENT: deferred Extremities exam: PRESENT: full ROM. ABSENT: calf tenderness, clubbing, pedal edema Neurological exam: PRESENT: alert, awake, oriented to person, oriented to place , oriented to time, oriented to situation, CN II-XII grossly intact. ABSENT: motor sensory deficit Psychiatric exam: PRESENT: appropriate affect, normal mood. ABSENT: homicidal ideation, suicidal ideation Skin exam: PRESENT: dry, intact, warm. ABSENT: cyanosis, rash Results Laboratory Results: 10/10/17 05:20 10/10/17 10/10/17 10/10/17 05:20 05:20 05:20 WBC 11.3 H RBC 4.45 Hgb 14.8 Hct 43.2 MCV 97 MCH 33.3 MCHC 34.3 RDW 12.6 Plt Count 210 Sodium 140.8 Potassium 2.9 L* Chloride 106 Carbon Dioxide 24 Anion Gap 11 BUN 15 Creatinine 1.06 Est GFR ( Amer) > 60 Est GFR (Non-Af Amer) 52 L Glucose 84 Calcium 10.3 H Magnesium 2.0 Impressions: Chest X-Ray 10/08/17 22:23 IMPRESSION: No acute cardiopulmonary findings. 2010 [employer] All Rights Reserved Abdomen/Pelvis CT 10/09/17 00:13 IMPRESSION: 1. Mild diffuse colitis of the left colon and sigmoid. 2. Moderate hepatic steatosis pattern. Assessment & Plan - Diagnosis (1) Hypertension Qualifiers: Hypertension type: essential hypertension Qualified Code(s): I10 - Essential (primary) hypertension Is this a current diagnosis for this admission?: Yes Plan: Continue clonidine transdermal patch. Resume the patient's p.o. home medications. Will provide IV antihypertensives as needed until patient is better able to tolerate p.o. (2) Intractable vomiting Qualifiers: Vomiting type: unspecified Nausea presence: with nausea Qualified Code(s) : R11.2 - Nausea with vomiting, unspecified Is this a current diagnosis for this admission?: Yes Plan: Improved; continue IV fluid hydration. Will provide as needed Zofran and Phenergan for nausea and vomiting. Clear diet ordered. We will start a PPI. (3) Viral gastroenteritis Is this a current diagnosis for this admission?: Yes Plan: Continue IV fluids and antiemetics. Considering the patient's symptoms have not improved over the last 36 hours, will initiate antibiotic coverage for colitis. (4) HIV (human immunodeficiency virus infection) Is this a current diagnosis for this admission?: Yes Plan: Patient to continue her home HARRT therapy (5) Hepatitis C infection Qualifiers: Viral hepatitis chronicity: chronic Hepatic coma status: without hepatic coma Qualified Code(s): B18.2 - Chronic viral hepatitis C Is this a current diagnosis for this admission?: Yes (6) Hypercalcemia Is this a current diagnosis for this admission?: Yes Plan: Chronically elevated secondary to her Waldenstrom macroglobulinemia. Somewhat improved after rehydration. (7) Light chain disease, kappa type Is this a current diagnosis for this admission?: Yes (8) Opiate dependence Qualifiers: Substance use status: uncomplicated Qualified Code(s): F11.20 - Opioid dependence, uncomplicated Is this a current diagnosis for this admission?: Yes Plan: Continue oxycodone; avoid all IV narcotics. (9) Tobacco abuse Is this a current diagnosis for this admission?: Yes Plan: Smoking cessation encouraged, nicotine replacement therapies are offered. (10) hx of basal ganglia infarct Is this a current diagnosis for this admission?: Yes (11) Colitis Is this a current diagnosis for this admission?: Yes Plan: The patient was admitted with intractable nausea and vomiting with lower abdominal pain. She was noted to have a WBC count of 12.8 with mild colitis noted to the sigmoid colon. Patient was initially managed conservatively with IV fluids and antiemetics. She has not had significant improvement in her symptoms, will start Cipro and Flagyl today. - Time Time Spent with patient: 25-34 minutes Medications reviewed and adjusted accordingly: Yes Anticipated discharge: Home
[2017-10-10] MEDS: SENNOSIDES/DOCUSATE 8.6-50 MG 1 EACH TABLET PO SCH (22:21)
[2017-10-10] MEDS: ONDANSETRON HCL INJ/PF 4 MG/2 ML SDV IV PRN (22:21)
[2017-10-10] MEDS: METRONIDAZOLE 500 MG TABLET PO SCH (22:21)
[2017-10-10] MEDS: CIPROFLOXACIN HCL 500 MG TABLET PO SCH (22:21)
[2017-10-11] MEDS: OXYCODONE HCL IR 5 MG TABLET PO PRN ×3 (04:09→22:14)
[2017-10-11] MEDS: HEPARIN SOD (PORCINE) 5,000 UNIT/ML 1 ML SYRINGE SUBCUT SCH ×3 (05:26→22:14)
[2017-10-11] MEDS: ENALAPRILAT DIHYDRATE INJ/PF 1.25 MG/1 ML SDV IV SCH ×2 (05:26→12:18)
[2017-10-11] MEDS: METRONIDAZOLE 500 MG TABLET PO SCH ×3 (05:27→22:34)
[2017-10-11 05:45] LABS: HEMOGLOBIN 13.5 g/dL (12.0-15.5); MEAN CORPUSCULAR HGB CONC 33.9 g/dL (32.0-36.0); MEAN CORPUSCULAR VOLUME 98 fl (80-97); PLATELET COUNT 187 10^3/uL (150-450); RED CELL DISTRIBUTION WIDTH 12.5 % (11.5-14.0); WHITE BLOOD COUNT 8.5 10^3/uL (4.0-10.5)
[2017-10-11 06:01] LABS: ANION GAP 11 (5-19); BLOOD UREA NITROGEN 18 mg/dL (7-20); CARBON DIOXIDE 22 mmol/L (22-30); CHLORIDE 106 mmol/L (98-107); GLUCOSE 72 mg/dL (75-110); POTASSIUM 3.1 mmol/L (3.6-5.0); SODIUM 138.7 mmol/L (137-145)
[2017-10-11] MEDS: CIPROFLOXACIN HCL 500 MG TABLET PO SCH ×2 (09:38→22:14)
[2017-10-11] MEDS: PANTOPRAZOLE SODIUM 40 MG VIAL IV SCH (09:39)
[2017-10-11] MEDS: METOPROLOL SUCCINATE 25 MG TAB.SR.24H PO SCH (09:39)
[2017-10-11] MEDS: AMLODIPINE BESYLATE 5 MG TABLET PO SCH (09:39)
[2017-10-11] MEDS: NORMAL SALINE 10 ML SDV (SCHEDULED) IV SCH ×2 (09:40→22:34)
[2017-10-11] MEDS: PREGABALIN 100 MG CAPSULE PO SCH ×3 (09:40→15:09)
[2017-10-11] MEDS ORDERED: ENALAPRILAT DIHYDRATE INJ/PF 1.25 MG/1 ML SDV IV PRN ×2 (12:38)
[2017-10-11] MEDS ORDERED: NORMAL SALINE 1000 ML 1,000 ML IV PRN (12:42)
--- NOTE | 2017-10-11 12:42 | PDOC PROGRESS REPORT ---
Subjective Progress Note for:: 10/11/17 Subjective:: Patient is seen on morning rounds as a follow-up of her nausea and vomiting. She is found resting in bed comfortably. She is sleeping when I enter the room but does wake easily. She reports continued nausea, although has improved greatly overnight. She is now tolerating clear liquids and a small amount of Jell-O. She was able to take her oral medications last night without worsening nausea or emesis. She denies abdominal pain. She does state that she is starting to feel better and is hopeful that she will regain her appetite this afternoon. She has no questions or concerns at this time. Reason For Visit: INTRACTABLE N/V Physical Exam Vital Signs: Temp Pulse Resp BP Pulse Ox 98.7 F 72 12 160/83 H 100 10/11/17 11:27 10/11/17 11:27 10/11/17 11:27 10/11/17 11:27 10/11/17 11:27 Intake & Output 10/10/17 10/11/17 10/12/17 06:59 06:59 06:59 Intake Total 1740 900 Output Total 1450 620 Balance 290 280 Weight 63.6 kg 75.9 kg General appearance: PRESENT: no acute distress, well-developed, well-nourished, other - Overweight Head exam: PRESENT: atraumatic, normocephalic Eye exam: PRESENT: conjunctiva pink, EOMI, PERRLA. ABSENT: scleral icterus Ear exam: PRESENT: normal external ear exam Mouth exam: PRESENT: moist, tongue midline Neck exam: ABSENT: carotid bruit, JVD, lymphadenopathy, thyromegaly Respiratory exam: PRESENT: clear to auscultation oralia, symmetrical, unlabored. ABSENT: rales, rhonchi, wheezes Cardiovascular exam: PRESENT: RRR, +S1, +S2. ABSENT: diastolic murmur, rubs, systolic murmur Pulses: PRESENT: normal dorsalis pedis pul Vascular exam: PRESENT: normal capillary refill GI/Abdominal exam: PRESENT: normal bowel sounds, soft. ABSENT: distended, guarding, mass, organolmegaly, rebound, tenderness Rectal exam: PRESENT: deferred Extremities exam: PRESENT: full ROM. ABSENT: calf tenderness, clubbing, pedal edema Neurological exam: PRESENT: alert, awake, oriented to person, oriented to place , oriented to time, oriented to situation, CN II-XII grossly intact. ABSENT: motor sensory deficit Psychiatric exam: PRESENT: appropriate affect, normal mood. ABSENT: homicidal ideation, suicidal ideation Skin exam: PRESENT: dry, intact, warm. ABSENT: cyanosis, rash Results Laboratory Results: 10/11/17 05:00 10/11/17 05:00 10/10/17 10/11/17 10/11/17 15:50 05:00 05:00 WBC 8.5 RBC 4.10 Hgb 13.5 Hct 40.0 MCV 98 H MCH 33.0 MCHC 33.9 RDW 12.5 Plt Count 187 Sodium 139.6 138.7 Potassium 3.3 L 3.1 L Chloride 107 106 Carbon Dioxide 21 L 22 Anion Gap 12 11 BUN 16 18 Creatinine 1.03 1.05 Est GFR ( Amer) > 60 > 60 Est GFR (Non-Af Amer) 54 L 53 L Glucose 73 L 72 L Calcium 10.3 H 10.0 Impressions: Chest X-Ray 10/08/17 22:23 IMPRESSION: No acute cardiopulmonary findings. 2010 [employer]- All Rights Reserved Abdomen/Pelvis CT 10/09/17 00:13 IMPRESSION: 1. Mild diffuse colitis of the left colon and sigmoid. 2. Moderate hepatic steatosis pattern. Assessment & Plan - Diagnosis (1) Colitis Is this a current diagnosis for this admission?: Yes Plan: The patient was admitted with intractable nausea and vomiting with lower abdominal pain. She was noted to have a WBC count of 12.8 with mild colitis noted to the sigmoid colon. Patient was initially managed conservatively with IV fluids and antiemetics. She did not have significant improvement in her symptoms, and so was started Cipro and Flagyl yesterday. She is provided her home pain medication regimen. Continue the patient's home dose of OxyContin BID and oxycodone as needed. Antiemetics are available as needed. Continue clear liquid diet and advance as tolerated. (2) Hypertension Qualifiers: Hypertension type: essential hypertension Qualified Code(s): I10 - Essential (primary) hypertension Is this a current diagnosis for this admission?: Yes Plan: Blood pressures remain elevated though slightly improved from previously. She is now tolerating her oral medications and so anticipate improvement in blood pressures soon. Continue clonidine transdermal patch, amlodipine, metoprolol, lisinopril/HCTZ. Will provide IV antihypertensives as needed. (3) Intractable vomiting Qualifiers: Vomiting type: unspecified Nausea presence: with nausea Qualified Code(s) : R11.2 - Nausea with vomiting, unspecified Is this a current diagnosis for this admission?: Yes Plan: Improved; continue IV fluid hydration. Will provide as needed Zofran and Phenergan for nausea and vomiting. Clear diet ordered; will advance as tolerated. Continue PPI. (4) HIV (human immunodeficiency virus infection) Is this a current diagnosis for this admission?: Yes Plan: Patient to continue her home HARRT therapy (5) Hepatitis C infection Qualifiers: Viral hepatitis chronicity: chronic Hepatic coma status: without hepatic coma Qualified Code(s): B18.2 - Chronic viral hepatitis C Is this a current diagnosis for this admission?: Yes (6) Hypercalcemia Is this a current diagnosis for this admission?: Yes Plan: Improved; Chronically elevated secondary to her Waldenstrom macroglobulinemia. (7) Light chain disease, kappa type Is this a current diagnosis for this admission?: Yes (8) Opiate dependence Qualifiers: Substance use status: uncomplicated Qualified Code(s): F11.20 - Opioid dependence, uncomplicated Is this a current diagnosis for this admission?: Yes Plan: Continue oxycodone; avoid all IV narcotics. (9) Tobacco abuse Is this a current diagnosis for this admission?: Yes Plan: Smoking cessation encouraged, nicotine replacement therapies are offered. (10) hx of basal ganglia infarct Is this a current diagnosis for this admission?: Yes (11) Viral gastroenteritis Is this a current diagnosis for this admission?: Yes Plan: Plan as above. - Time Time Spent with patient: 15-24 minutes Anticipated discharge: Home Within: within 24 hours - Once tolerating p.o.
[2017-10-11] MEDS: POTASSI CL 20 MEQ/50 ML RIDER 20 MEQ/50 ML RTUPB IV SCH ×2 (13:57→16:33)
[2017-10-11] MEDS ORDERED: LORAZEPAM 1 MG TABLET PO PRN (17:43)
[2017-10-11] MEDS: SENNOSIDES/DOCUSATE 8.6-50 MG 1 EACH TABLET PO SCH (22:14)
[2017-10-12] MEDS: OXYCODONE HCL IR 5 MG TABLET PO PRN ×2 (02:26→09:42)
[2017-10-12] MEDS: HEPARIN SOD (PORCINE) 5,000 UNIT/ML 1 ML SYRINGE SUBCUT SCH ×2 (06:03→15:20)
[2017-10-12] MEDS: METRONIDAZOLE 500 MG TABLET PO SCH ×2 (06:03→15:19)
[2017-10-12] MEDS: PREGABALIN 100 MG CAPSULE PO SCH ×2 (09:40→15:19)
[2017-10-12] MEDS: AMLODIPINE BESYLATE 5 MG TABLET PO SCH (09:41)
[2017-10-12] MEDS: METOPROLOL SUCCINATE 25 MG TAB.SR.24H PO SCH (09:41)
[2017-10-12] MEDS: CIPROFLOXACIN HCL 500 MG TABLET PO SCH (09:42)
[2017-10-12] MEDS: PANTOPRAZOLE SODIUM 40 MG VIAL IV SCH (09:43)
[2017-10-12] MEDS: NORMAL SALINE 10 ML SDV (SCHEDULED) IV SCH (09:47)
[2017-10-12] MEDS ORDERED: (PENDING PHARMACY ID) (Lisinopril/Hydrochlorothiazide [Lisinopril-Hctz 20-12.5 Mg Tab] 1 T PO SCH (10:00)
[2017-10-12] MEDS ORDERED: LISINOPRIL 10 MG TABLET PO SCH (10:00)
[2017-10-12] MEDS ORDERED: HYDROCHLOROTHIAZIDE 12.5 MG CAPSULE PO SCH (10:00)
--- NOTE | 2017-10-12 13:46 | Physician Advisory Note ---
Physician Advisor ProgressNote .: [facility], I have reviewed the medical record for this patient. Physician Advisor Statement: Nice documentation of Chronic Hep C. Please consider documenting, if you agree: 1. type of colitis - bacterial? viral? UC? Crohns? or ... Thanks! CK
[2017-10-12 13:51] VITALS: BP 160/83
--- NOTE | 2017-10-12 15:02 | PDOC DISCHARGE SUMMARY ---
General - Admit/Disc Date/PCP Admission Date/Primary Care Provider: 10/09/17 03:49 RAMILA HERNÁNDEZ MD Discharge Date: 10/12/17 - Discharge Diagnosis (1) Colitis Is this a current diagnosis for this admission?: Yes (2) Hypertension Is this a current diagnosis for this admission?: Yes (3) Intractable vomiting Is this a current diagnosis for this admission?: Yes (4) HIV (human immunodeficiency virus infection) Is this a current diagnosis for this admission?: Yes (5) Hepatitis C infection Is this a current diagnosis for this admission?: Yes (6) Hypercalcemia Is this a current diagnosis for this admission?: Yes (7) Light chain disease, kappa type Is this a current diagnosis for this admission?: Yes (8) Opiate dependence Is this a current diagnosis for this admission?: Yes (9) Tobacco abuse Is this a current diagnosis for this admission?: Yes (10) hx of basal ganglia infarct Is this a current diagnosis for this admission?: Yes (11) Viral gastroenteritis Is this a current diagnosis for this admission?: Yes - Additional Information Resuscitation Status: Full Code Discharge Diet: As Tolerated, Regular Discharge Activity: Activity As Tolerated, Slowly Increase Activity Prescriptions: RX: Ciprofloxacin HCl [Cipro 500 mg Tablet] 500 mg PO Q12 #20 tablet RX: Metronidazole [Flagyl 500 mg Tablet] 500 mg PO Q8 #30 tablet RX: Promethazine HCl 12.5 mg PO Q8HP PRN #15 tablet PRN Reason: For Nausea/Vomiting Home Medications: RX: Abacavir/Dolutegravir/Lamivudi [Triumeq Tablet] 1 tab PO DAILY 10/09/17 RX: Amlodipine Besylate [Norvasc 5 mg Tablet] 5 mg PO DAILY 10/09/17 RX: Clonidine [Catapres-Tts 2 (0.2 mg/24 Hr) Transderm Ptch] 1 patch TD BLACKWELL@10 RX: Gabapentin [Neurontin 300 mg Capsule] 300 mg PO QHS 10/09/17 RX: Lisinopril/Hydrochlorothiazide [Lisinopril-Hctz 20-12.5 mg Tab] 1 tab PO DAILY 10/09/17 RX: Metoprolol Succinate 25 mg PO DAILY 10/09/17 RX: Morphine Sulfate [Morphine Ir 15 mg Tablet] 15 mg PO BIDP PRN 10/09/17 RX: Morphine Sulfate [Morphine Sulfate ER] 15 mg PO Q12 10/09/17 RX: Pregabalin [Lyrica 100 mg Capsule] 100 mg PO Q8 10/09/17 RX: Zolpidem Tartrate [Zolpidem Tartrate ER] 12.5 mg PO QHS 10/09/17 RX: Acetaminophen [Tylenol 325 mg Tablet] 650 mg PO Q4HP PRN tablet 10/12/17 RX: Ciprofloxacin HCl [Cipro 500 mg Tablet] 500 mg PO Q12 #20 tablet 10/12/17 RX: Metronidazole [Flagyl 500 mg Tablet] 500 mg PO Q8 #30 tablet 10/12/17 RX: Promethazine HCl 12.5 mg PO Q8HP PRN #15 tablet 10/12/17 History of Present Illness History of Present Illness: Per H&P by Dr. Decker: NATHANIEL DOMINGUEZ is a 61 year old female with a past medical history of HIV, Waldenstrm's macroglobulinemia, tobacco abuse, basal ganglia infarct who presents to the emergency department with complaints of nausea and vomiting. She reports she has been in her normal state of health but started yesterday with development of sudden onset of nausea vomiting and inability to eat. She denies any diarrhea. She reports that she has been constipated having very small bowel movements she denies medication changes but reports that she is now on morphine for her back pain. CT the abdomen is relatively unrevealing although it is positive for constipation and potential mild colitis. She is referred to the hospitalist service for viral gastroenteritis and intractable nausea vomiting. Hospital Course Hospital Course: The patient was admitted with continuous cardiac telemetry. She was initially treated conservatively with IV fluids, antiemetics, and pain medications. Her hypertension was managed with IV antihypertensives until she was able to tolerate p.o. medications. The patient's symptoms did not improve over the following 36 hours and therefore she was started on Cipro and Flagyl for presumed bacterial colitis. Subsequently, she quickly had improvements in her generalized abdominal pain, nausea and vomiting and resolution of the leukocytosis. By the following morning she was tolerating a clear liquid diet and p.o. medications. At time of discharge the patient is stable and tolerating a regular diet. She is discharged to home with self-care and prescriptions for Cipro, metronidazole , and Phenergan. She is instructed to follow-up with her primary care provider within 1-2 weeks or sooner if not improved. Physical Exam Vital Signs: Temp Pulse Resp BP Pulse Ox 98.3 F 52 L 16 160/83 H 100 10/12/17 13:36 10/12/17 13:36 10/12/17 13:36 10/12/17 13:36 10/12/17 13:36 Intake & Output 10/11/17 10/12/17 10/13/17 06:59 06:59 06:59 Intake Total 900 2460 Output Total 620 3100 Balance 280 -640 Weight 75.9 kg 74 kg General appearance: PRESENT: no acute distress, well-developed, well-nourished Head exam: PRESENT: atraumatic, normocephalic Eye exam: PRESENT: conjunctiva pink, EOMI, PERRLA. ABSENT: scleral icterus Ear exam: PRESENT: normal external ear exam Mouth exam: PRESENT: moist, tongue midline Neck exam: ABSENT: carotid bruit, JVD, lymphadenopathy, thyromegaly Respiratory exam: PRESENT: clear to auscultation oralia, symmetrical, unlabored. ABSENT: rales, rhonchi, wheezes Cardiovascular exam: PRESENT: RRR, +S1, +S2. ABSENT: diastolic murmur, rubs, systolic murmur Pulses: PRESENT: normal dorsalis pedis pul Vascular exam: PRESENT: normal capillary refill GI/Abdominal exam: PRESENT: normal bowel sounds, soft. ABSENT: distended, guarding, mass, organolmegaly, rebound, tenderness Rectal exam: PRESENT: deferred Extremities exam: PRESENT: full ROM. ABSENT: calf tenderness, clubbing, pedal edema Neurological exam: PRESENT: alert, awake, oriented to person, oriented to place , oriented to time, oriented to situation, CN II-XII grossly intact. ABSENT: motor sensory deficit Psychiatric exam: PRESENT: appropriate affect, normal mood. ABSENT: homicidal ideation, suicidal ideation Skin exam: PRESENT: dry, intact, warm. ABSENT: cyanosis, rash Results Laboratory Results: 10/11/17 05:00 10/11/17 05:00 Impressions: Chest X-Ray 10/08/17 22:23 IMPRESSION: No acute cardiopulmonary findings. 2010 [employer]- All Rights Reserved Abdomen/Pelvis CT 10/09/17 00:13 IMPRESSION: 1. Mild diffuse colitis of the left colon and sigmoid. 2. Moderate hepatic steatosis pattern. Qualifiers PATEINT BEING DISCHARGED WITH ANY OF THE FOLLOWING DIAGNOSIS?: No
[2017-10-14] MEDS ORDERED: CLONIDINE 0.2 MG/24 HR PATCH.TDWK TD SCH (10:00)
== END 2017-10-12 16:00 | disposition home or self-care (01) ==
LOC: ER 19:33 → EH 10-09 03:49 → 4N 10-09 05:35
PROVIDERS: ADMIT Family Medicine; ATTEND Family Medicine
DX: K52.9 Noninfective gastroenteritis and colitis, unspecified (principal); I10 Essential (primary) hypertension; R11.2 Nausea with vomiting, unspecified; B20 Human immunodeficiency virus [HIV] disease; B18.2 Chronic viral hepatitis C; C88.0 Waldenstrom macroglobulinemia; E83.52 Hypercalcemia; D80.8 Other immunodeficiencies with predominantly antibody defects; F11.20 Opioid dependence, uncomplicated; A08.4 Viral intestinal infection, unspecified; K59.00 Constipation, unspecified; M54.5 Low back pain; G62.9 Polyneuropathy, unspecified; F17.200 Nicotine dependence, unspecified, uncomplicated; M19.90 Unspecified osteoarthritis, unspecified site; Z86.73 Personal history of transient ischemic attack (TIA), and cerebral infarction without residual deficits; Z79.899 Other long term (current) drug therapy; Z86.11 Personal history of tuberculosis; Z87.828 Personal history of other (healed) physical injury and trauma
CPT/HCPCS: 99285; 96361; 96374; 96375; 86360; 36415 ×2; 87086; 83690; 83735; 85025; 85027 ×2; 80048 ×2; 80053; 81001; 80307; 71045; 74177; A9270 ×21; J1644 ×4; J3010; J1630; J0360 ×2; J2765; J3490 ×9; J1170 ×2; J2060 ×2; C9113 ×2; J2405 ×3; J3480 ×2; J7030 ×2; S0164

== ENCOUNTER 2017-10-28 20:27 | Emergency (ER) | payer MEDICARE, MEDICAID ==
[2017-10-28] MEDS ORDERED: ONDANSETRON HCL INJ/PF 4 MG/2 ML SDV IV ONE (21:55)
[2017-10-28] MEDS ORDERED: NORMAL SALINE 1000 ML 1,000 ML IV ONE (21:55)
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
[2017-10-28 22:23] LABS: ALANINE AMINOTRANSFERASE 46 U/L (9-52); ALBUMIN 4.5 g/dL (3.5-5.0); ALKALINE PHOSPHATASE 103 U/L (38-126); ANION GAP 13 (5-19); ASPARTATE AMINO TRANSFERASE 44 U/L (14-36); BILIRUBIN,DIRECT 0.4 mg/dL (0.0-0.4); BLOOD UREA NITROGEN 25 mg/dL (7-20); CALCIUM 11.5 mg/dL (8.4-10.2); CARBON DIOXIDE 23 mmol/L (22-30); CHLORIDE 103 mmol/L (98-107); GLUCOSE 99 mg/dL (75-110); LIPASE 348.5 U/L (23-300); POTASSIUM 3.3 mmol/L (3.6-5.0); SODIUM 138.9 mmol/L (137-145); TOTAL PROTEIN 8.1 g/dL (6.3-8.2)
[2017-10-28 22:38] LABS: HEMATOCRIT 44.3 % (36.0-47.0); HEMOGLOBIN 15.5 g/dL (12.0-15.5); MEAN CORPUSCULAR HEMOGLOBIN 33.4 pg (27.0-33.4); MEAN CORPUSCULAR HGB CONC 35.1 g/dL (32.0-36.0); MEAN CORPUSCULAR VOLUME 95 fl (80-97); PLATELET COUNT 215 10^3/uL (150-450); RED BLOOD COUNT 4.66 10^6/uL (3.72-5.28); RED CELL DISTRIBUTION WIDTH 12.8 % (11.5-14.0)
[2017-10-28] MEDS ORDERED: RINGERS SOLUTION,LACTATED 1,000 ML IV ONE (23:01)
[2017-10-28] MEDS ORDERED: PROCHLORPERAZINE EDISYLATE INJ 10 MG/2 ML VIAL IV ONE (23:02)
[2017-10-28] MEDS ORDERED: HYDROMORPHONE HCL INJ/PF 2 MG/ML AMPULE IV ONE (23:03)
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
[2017-10-28 23:22] LABS: APPEARANCE,URINE SLIGHTLY-CLOUDY; BILIRUBIN,URINE NEGATIVE (NEGATIVE); GLUCOSE, URINE NEGATIVE (NEGATIVE); KETONES,URINE TRACE mg/dL (NEGATIVE); LEUKOCYTE ESTERASE,URINE NEGATIVE (NEGATIVE); NITRITE,URINE NEGATIVE (NEGATIVE); PROTEIN,URINE 30 mg/dL (NEGATIVE); URINE SPECIFIC GRAVITY 1.023
[2017-10-28 23:27] LABS: COLOR,URINE DARK YELLOW
[2017-10-28 23:28] LABS: ABSOLUTE LYMPHOCYTES# (MANUAL) 2.3 10^3/uL (0.5-4.7); ABSOLUTE MONOCYTES # (MANUAL) 0.5 10^3/uL (0.1-1.4); ABSOLUTE NEUTROPHILS# (MANUAL) 5.1 10^3/uL (1.7-8.2); BASOPHILS % (MANUAL) 0 % (0-2); EOSINOPHILS % (MANUAL) 1 % (0-6); LYMPHOCYTES % (MANUAL) 29 % (13-45); MONOCYTES % (MANUAL) 6 % (3-13); SEGMENTED NEUTROPHILS % (MAN) 64 % (42-78); TOTAL CELLS COUNTED 100; TOXIC VACUOLATION PRESENT
[2017-10-28 23:31] LABS: PLATELET COMMENT ADEQUATE; RBC MORPHOLOGY COMMENT NORMO-CYTIC/CHROMIC
--- NOTE | 2017-10-28 23:50 | RADIOLOGY REPORT (SQ) ---
EXAM DESCRIPTION: ABDOMEN 2 VIEWS CLINICAL HISTORY: 62 years, Female, vomiting, eval sbo COMPARISON: 2.17.17 NUMBER OF VIEWS: 2 LIMITATIONS: None. FINDINGS: Paucity of bowel gas, no dilated bowel, no free air, stable metallic debris of the lower abdomen overlying the right ilium measures up to 1.2 cm, atherosclerosis, and partially visualized likely adequate right miniport central line tip at the cavoatrial junction. Mild scoliotic curvature. IMPRESSION: No acute findings.
[2017-10-29] MEDS ORDERED: CIPROFLOXACIN HCL 500 MG TABLET PO ONE (00:40)
[2017-10-29] MEDS ORDERED: METRONIDAZOLE 500 MG TABLET PO ONE (00:40)
[2017-10-29] MEDS ORDERED: ONDANSETRON ODT 4 MG TAB (6 TAB/ER DISP) PO PRN (00:44)
[2017-10-29 01:13] VITALS: BP 151/91
== END 2017-10-29 01:40 | disposition home or self-care (01) ==
LOC: ER 20:27
DX: E86.0 Dehydration (principal); R11.2 Nausea with vomiting, unspecified; F11.20 Opioid dependence, uncomplicated; F17.200 Nicotine dependence, unspecified, uncomplicated; Z21 Asymptomatic human immunodeficiency virus [HIV] infection status; Z86.19 Personal history of other infectious and parasitic diseases
CPT/HCPCS: 36591; 99284; 96361; 96374; 96375; 36415; 83690; 85025; 80053; 81001; 74019; A9270 ×3; J1170; J0780; J2405; J7030; J7120

== ENCOUNTER → 2018-08-15 | Outpatient (CLI) | payer MEDICARE, MEDICAID ==
--- NOTE | 2018-08-16 12:50 | XCELERA REPORT ---
[address] [address] Lower Extremity Arterial Evaluation Name: NATHANIEL DOMINGUEZ Age: 62 yrs Gender: Female : 1955 Patient Status: Outpatient Patient Location: [facility] Study Date: 08/15/2018 11:50 AM Procedure: A color flow and duplex scan of the lower extremity arteries was performed bilaterally with velocity and waveform anaylsis. Reason For Study: PVD Ordering Physician: TRACY NEGRO Performed By: Prachi Rosado Measurements and Calculations Right Left PRINT CONTROLLER PSV -142.9 -47.3 cm/sec Prox PFA PSV 74.5 40.5 cm/sec Prox SFA PSV 75.6 42.5 cm/sec Mid SFA PSV 86.2 58.0 cm/sec Dist SFA PSV 130.1 55.5 cm/sec Mid [place] PSV 95.9 23.8 cm/sec Mid FINANCIAL PROJECT MANAGER PSV 98.2 27.9 cm/sec Elmer Pedis PSV -58.7 -28.6 cm/sec Right Side Arterial Evaluation Normal velocity and triphasic waveforms noted from the Common Femoral artery to the Posterior tibial artery . Biphasic with normal velocity in the anterior Tibial artery. 0-19% stenosis at the Anterior Tibial artery. Ankle Brachial index not done due to declined by patient. Left Side Arterial Evaluation Mildly reduced velocity and Biphasic phasic waveforms noted from the Common Femoral artery to the Posterior tibial artery . Monophasic with lower velocity in the anterior Tibial artery. 50-99 % stenosis at the Common Femoral artery. Ankle Brachial index not done due to declined by patient. Interpretation Summary Mild hemodynamically significant lesions in the right lower extremity only, on duplex imaging, at rest. Severe hemodynamically significant lesions in the left lower extremity only, on duplex imaging, at rest. : TRACY NEGRO > Agustin Lin
== END ==
LOC: SP 10:40
PROVIDERS: ATTEND Internal Medicine Geriatric Medicine
DX: I73.9 Peripheral vascular disease, unspecified (principal)
CPT/HCPCS: 93925

== ENCOUNTER 2018-09-19 11:14 | Emergency (ER) | payer MEDICARE, MEDICAID ==
[2018-09-19] MEDS ORDERED: NORMAL SALINE 1000 ML 1,000 ML IV ONE (12:48)
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
[2018-09-19 14:10] LABS: ALANINE AMINOTRANSFERASE 49 U/L (9-52); ALBUMIN 4.3 g/dL (3.5-5.0); ALKALINE PHOSPHATASE 77 U/L (38-126); ANION GAP 11 (5-19); ASPARTATE AMINO TRANSFERASE 60 U/L (14-36); BILIRUBIN,DIRECT 0.6 mg/dL (0.0-0.4); BILIRUBIN,TOTAL 1.1 mg/dL (0.2-1.3); BLOOD UREA NITROGEN 15 mg/dL (7-20); CALCIUM 10.5 mg/dL (8.4-10.2); CARBON DIOXIDE 24 mmol/L (22-30); CHLORIDE 106 mmol/L (98-107); GLUCOSE 93 mg/dL (75-110); POTASSIUM 3.9 mmol/L (3.6-5.0); SODIUM 140.6 mmol/L (137-145); TOTAL PROTEIN 7.7 g/dL (6.3-8.2)
[2018-09-19 14:12] LABS: HEMATOCRIT 40.4 % (36.0-47.0); MEAN CORPUSCULAR HEMOGLOBIN 35.1 pg (27.0-33.4); MEAN CORPUSCULAR HGB CONC 34.5 g/dL (32.0-36.0); MEAN CORPUSCULAR VOLUME 102 fl (80-97); PLATELET COUNT 144 10^3/uL (150-450); RED BLOOD COUNT 3.97 10^6/uL (3.72-5.28); RED CELL DISTRIBUTION WIDTH 14.6 % (11.5-14.0); WHITE BLOOD COUNT 2.9 10^3/uL (4.0-10.5)
[2018-09-19 14:21] LABS: ABSOLUTE LYMPHOCYTES# (MANUAL) 0.1 10^3/uL (0.5-4.7); ABSOLUTE MONOCYTES # (MANUAL) 0.4 10^3/uL (0.1-1.4); ABSOLUTE NEUTROPHILS# (MANUAL) 2.3 10^3/uL (1.7-8.2); BASOPHILS % (MANUAL) 0 % (0-2); EOSINOPHILS % (MANUAL) 1 % (0-6); LYMPHOCYTES % (MANUAL) 3 % (13-45); MONOCYTES % (MANUAL) 15 % (3-13); SEGMENTED NEUTROPHILS % (MAN) 81 % (42-78); TOTAL CELLS COUNTED 100
[2018-09-19 14:22] LABS: ANISOCYTOSIS SLIGHT; POLYCHROMASIA SLIGHT; TEAR DROP CELLS SLIGHT
[2018-09-19 14:23] LABS: PLATELET CLUMPS PRESENT; PLATELET COMMENT DECREASED
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
[2018-09-19] MEDS ORDERED: ONDANSETRON HCL INJ/PF 4 MG/2 ML SDV IV ONE (17:20)
[2018-09-19] MEDS ORDERED: MORPHINE SULFATE 10 MG/ML INJ IV ONE (17:20)
[2018-09-19] MEDS ORDERED: HYDROCODONE/ACETAMINOPHEN 5-325 MG TABLET PO ONE (17:21)
[2018-09-19 17:55] VITALS: BP 180/99
--- NOTE | 2018-09-19 18:07 | RADIOLOGY REPORT (SQ) ---
EXAM DESCRIPTION: CT LUMBAR SPINE WITHOUT COMPLETED DATE/TIME: 09/19/2018 5:50 pm REASON FOR STUDY: s/p fall low back COMPARISON: CT abdomen pelvis 10/09/2017 TECHNIQUE: Axial images acquired through the lumbar spine without intravenous contrast. Images revi ewed with lung, soft tissue and bone windows. Reconstructed coronal and sagittal MPR images reviewed . All images stored on PACS. All CT scanners at this facility use dose modulation, iterative reconstruction, and/or weight based d osing when appropriate to reduce radiation dose to as low as reasonably achievable (ALARA). [facility]: Dose Right [facility]: CareDose [facility]: Dose Right [facility]: Teradose 4D [facility]: [employer] RADIATION DOSE: CT Rad equipment meets quality standard of care and radiation dose reduction techniq ues were employed. CTDIvol: 17.2 mGy. DLP: 517 mGy-cm. mGy. LIMITATIONS: Streak artifact from shrapnel the anterior half of the L4 vertebral body. FINDINGS: SEGMENTATION: Normal. No transitional anatomy. ALIGNMENT: Asymmetric rightward disc space loss of height at L4-5 with grade 1 anterolisthesis of L4 over L5, and grade 1 anterolisthesis of L5 over S1 VERTEBRAL BODIES: There is a central upper endplate depression at L1, which is new compared to CT abd omen pelvis 10/09/2017. No L1 vertebral body loss of height. There is sclerosis along the upper endpl ate of L1 on the current study suggesting that this is subacute. No paraspinal soft tissue swelling at the L1 level. DISCS: Minimal posterior disc bulging at T12-L1 without significant central or foraminal encroachment . The L1-2 level is unremarkable. At L2-3, minimal posterior disc bulging and mild facet and ligament hypertrophy is present without si gnificant central or foraminal encroachment. At L3-4, broad diffuse posterior disc bulging and mild bilateral facet and ligament hypertrophy are p resent. No central or right foraminal narrowing. Moderate left foraminal stenosis. At L4-5, grade 1 anterolisthesis of L4 over L5 is present with broad diffuse posterior disc bulging r ight greater than left. Bulky bilateral facet hypertrophy right greater than left. High-grade right foraminal narrowing with effacement of fat around the exiting right L4 nerve root. Moderate left L4 -5 foraminal narrowing partial effacement of the fat around the exiting left L4 nerve root. At L5-S1, broad diffuse posterior disc bulging and grade 1 anterolisthesis of L5 over S1 is present w ith moderate facet hypertrophy. No central stenosis. High-grade right and left foraminal narrowing with effacement of the fat around the exiting L5 nerve roots bilaterally. PEDICLES, TRANSVERSE PROCESSES: No fractures. No dislocation. No acute findings. FACETS, POSTERIOR ELEMENTS: No fractures. No dislocation. HARDWARE: None in the spine. VISUALIZED RIBS: No fractures. SOFT TISSUES: Calcified abdominal aorta without aneurysm OTHER: No other significant finding. IMPRESSION: Degenerative changes at L4-5 and L5-S1. Central upper endplate compression at L1 appears subacute to chronic on today's study, with bony scle rosis present TECHNICAL DOCUMENTATION: JOB ID: [id number] Quality ID # [id number]: Final reports with documentation of one or more dose reduction techniques (e.g., Au tomated exposure control, adjustment of the mA and/or kV according to patient size, use of iterative reconstruction technique) 2010 [employer]- All Rights Reserved Reading location - IP/workstation name: [email or web address]
== END 2018-09-19 20:25 | disposition home or self-care (01) ==
LOC: ER 11:14
DX: S32.019A Unspecified fracture of first lumbar vertebra, initial encounter for closed fracture (principal); W19.XXXA Unspecified fall, initial encounter; I10 Essential (primary) hypertension; F17.210 Nicotine dependence, cigarettes, uncomplicated; Z21 Asymptomatic human immunodeficiency virus [HIV] infection status; Z92.21 Personal history of antineoplastic chemotherapy; Z85.72 Personal history of non-Hodgkin lymphomas
CPT/HCPCS: 36591; 99285; 96361; 51701; 96374; 36415; 85025; 80053; 72131; J2405; J7030; A9270

== ENCOUNTER → 2018-11-13 | Outpatient (CLI) | payer MEDICARE, MEDICAID ==
--- NOTE | 2018-11-13 10:15 | WOMENS IMAGING REPORT ---
EXAM DESCRIPTION: BONE DENSITY HIP/SPINE COMPLETED DATE/TIME: 11/13/2018 9:42 am REASON FOR STUDY: M81.0 AGE-RELATED OSTEOPOROSIS WITHOUT CURRENT PATHOLOGICAL FRACTURE M54.5 LOW BA CK PAIN M81.0 AGE-RELATED OSTEOPOROSIS W/O CURRENT PATHOLOGICAL FRAC COMPARISON: None. TECHNIQUE: Dual-Energy X-ray Absorptiometry (DEXA) of the AP Spine and Hip. LIMITATIONS: None. FINDINGS: LUMBAR SPINE: The bone mineral density (BMD) measured from L1-L4 in the AP projection correlates with a T-score of -0.7, which is within normal range as defined by the World Health Organization. HIP: The bone mineral density (BMD) measured in the left femoral neck at the hip correlates with a T-score of -0.4, which is within normal range as defined by the World Health Organization. IMPRESSION: 1. LUMBAR SPINE: Normal 2. HIP: Normal COMMENT: The World Health Organization defines low BMD as follows: T-score: Normal: Greater than -1.0 Osteopenia: Between -1.0 and -2.5 Osteoporosis: Less than -2.5 without fractures Established osteoporosis: Less than -2.5 with fractures In general, you may wish to consider: Diagnosis Treatment Follow-up DEXA Normal BMD Prevention 2-3 years Osteopenia Prevention/Therapy 1-2 years Osteoporosis Therapy Yearly TECHNICAL DOCUMENTATION: JOB ID: [id number] [employer]- All Rights Reserved Reading location - IP/workstation name: [email or web address]
== END ==
LOC: WI 09:11
PROVIDERS: ATTEND Internal Medicine Medical Oncology
DX: M81.0 Age-related osteoporosis without current pathological fracture (principal); M54.5 Low back pain
CPT/HCPCS: 77080

== ENCOUNTER 2019-06-21 14:54 | Emergency (ER) | payer MEDICARE, MEDICAID ==
[2019-06-21 15:11] VITALS: BP 148/71
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
--- NOTE | 2019-06-21 15:46 | RADIOLOGY REPORT (SQ) ---
EXAM DESCRIPTION: CT LUMBAR SPINE WITHOUT COMPLETED DATE/TIME: 06/21/2019 3:30 pm REASON FOR STUDY: pain s/p fall COMPARISON: 09/19/2018 TECHNIQUE: Axial images acquired through the lumbar spine without intravenous contrast. Images revie wed with lung, soft tissue and bone windows. Reconstructed coronal and sagittal MPR images reviewed. Images stored on PACS. All CT scanners at this facility use dose modulation, iterative reconstruction, and/or weight based d osing when appropriate to reduce radiation dose to as low as reasonably achievable (ALARA). [facility]: Dose Right [facility]: CareDose [facility]: Dose Right [facility]: Teradose 4D [facility]: [employer] RADIATION DOSE: mGy. LIMITATIONS: None. FINDINGS: Similar degenerative disc disease greatest at the L4-5 and L5-S1 levels. Stable minimal a nterolisthesis of L4 on L5. Similar mild superior endplate compression of the L1 vertebral body. No evidence for acute fracture. Paraspinal soft tissues are stable. HARDWARE: None in the spine. VISUALIZED RIBS: No fractures. OTHER: No other significant finding. IMPRESSION: DEGENERATIVE CHANGES IN THE LUMBAR SPINE WITHOUT ACUTE FRACTURE OR DISLOCATION. TECHNICAL DOCUMENTATION: JOB ID: [id number] Quality ID # [id number]: Final reports with documentation of one or more dose reduction techniques (e.g., Au tomated exposure control, adjustment of the mA and/or kV according to patient size, use of iterative reconstruction technique) 2010 [employer]- All Rights Reserved Reading location - IP/workstation name: [email or web address]
[2019-06-21] MEDS ORDERED: IBUPROFEN 600 MG TABLET PO ONE (16:10)
[2019-06-21] MEDS ORDERED: LIDOCAINE 5% (700 MG) TRANSDERMAL ADH..PATCH TP ONE (16:12)
[2019-06-21] MEDS ORDERED: HYDROCODONE/ACETAMINOPHEN 5-325 MG (6 TAB/ER DISP) PO PRN (16:12)
== END 2019-06-21 16:28 | disposition home or self-care (01) ==
LOC: ER 14:54
DX: M54.5 Low back pain (principal); W01.0XXA Fall on same level from slipping, tripping and stumbling without subsequent striking against object, initial encounter; G89.29 Other chronic pain; I10 Essential (primary) hypertension; Z92.21 Personal history of antineoplastic chemotherapy; Z21 Asymptomatic human immunodeficiency virus [HIV] infection status
CPT/HCPCS: 99283; 72131; A9270

== ENCOUNTER → 2019-07-16 | Outpatient (CLI) | payer MEDICARE, MEDICAID ==
[2019-07-16 15:57] LABS: ABSOLUTE EOSINOPHILS # (AUTO) 0.3 10^3/uL (0.0-0.6); ABSOLUTE LYMPHOCYTES (AUTO) 1.4 10^3/uL (0.5-4.7); ABSOLUTE MONOCYTES (AUTO) 0.4 10^3/uL (0.1-1.4); BASOPHILS % (AUTO) 0.5 % (0-2); EOSINOPHILS % (AUTO) 4.5 % (0-6); HEMATOCRIT 40.3 % (36.0-47.0); HEMOGLOBIN 13.5 g/dL (12.0-15.5); LYMPHOCYTES % (AUTO) 23.2 % (13-45); MEAN CORPUSCULAR HEMOGLOBIN 31.8 pg (27.0-33.4); MEAN CORPUSCULAR HGB CONC 33.4 g/dL (32.0-36.0); MEAN CORPUSCULAR VOLUME 95 fl (80-97); MONOCYTES % (AUTO) 5.8 % (3-13); PLATELET COUNT 181 10^3/uL (150-450); RED BLOOD COUNT 4.24 10^6/uL (3.72-5.28); RED CELL DISTRIBUTION WIDTH 14.7 % (11.5-14.0); TOTAL CELLS COUNTED % (AUTO) 100 %; WHITE BLOOD COUNT 6.1 10^3/uL (4.0-10.5)
[2019-07-16 16:00] LABS: APPEARANCE,URINE SLIGHTLY-CLOUDY; BILIRUBIN,URINE NEGATIVE (NEGATIVE); COLOR,URINE YELLOW; GLUCOSE, URINE NEGATIVE (NEGATIVE); KETONES,URINE NEGATIVE (NEGATIVE); LEUKOCYTE ESTERASE,URINE NEGATIVE (NEGATIVE); NITRITE,URINE NEGATIVE (NEGATIVE); PROTEIN,URINE NEGATIVE (NEGATIVE); URINE SPECIFIC GRAVITY 1.012; UROBILINOGEN,URINE NEGATIVE mg/dL (<2.0)
[2019-07-16 16:03] LABS: ALBUMIN 4.4 g/dL (3.5-5.0); ALKALINE PHOSPHATASE 129 U/L (38-126); ANION GAP 11 (5-19); ASPARTATE AMINO TRANSFERASE 55 U/L (14-36); BILIRUBIN,DIRECT 0.3 mg/dL (0.0-0.4); BILIRUBIN,TOTAL 0.6 mg/dL (0.2-1.3); BLOOD UREA NITROGEN 17 mg/dL (7-20); CARBON DIOXIDE 23 mmol/L (22-30); CHLORIDE 104 mmol/L (98-107); GLUCOSE 96 mg/dL (75-110)
[2019-07-19 02:36] LABS: % CD 4 POS LYMPH 17.7 % (30.8-58.5); ABSOLUTE CD 4 HELPER 230 /uL (359-1519); CD BASOPHILS 1 % (Not Estab.); CD EOSINOPHILS 5 % (Not Estab.); CD MONOCYTES 5 % (Not Estab.); CD NEUTROPHILS 67 % (Not Estab.); EOSINOPHILS (ABSOLUTE) 0.3 x10E3/uL (0.0-0.4); HEMOGLOBIN 13.3 g/dL (11.1-15.9); IMMATURE GRANULOCYTES 0 % (Not Estab.); LYMPHS(ABSOLUTE) 1.3 x10E3/uL (0.7-3.1); MCHC 34.2 g/dL (31.5-35.7); MCV 97 fL (79-97); PLATELETS 183 x10E3/uL (150-450); RBC 4.02 x10E6/uL (3.77-5.28)
== END ==
LOC: OD 13:23
PROVIDERS: ATTEND Nurse Practitioner
DX: B20 Human immunodeficiency virus [HIV] disease (principal); Z11.3 Encounter for screening for infections with a predominantly sexual mode of transmission; Z79.899 Other long term (current) drug therapy
CPT/HCPCS: 36415; 80053; 81001; 85025; 86361; 86480; 86592

== ENCOUNTER 2019-12-18 14:16 | Emergency (ER) | payer MEDICARE, MEDICAID ==
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
[2019-12-18 16:09] LABS: A TYPE INFLUENZA AG NEGATIVE (NEGATIVE); B INFLUENZA AG NEGATIVE (NEGATIVE)
--- NOTE | 2019-12-18 16:19 | RADIOLOGY REPORT (SQ) ---
EXAM DESCRIPTION: CHEST 2 VIEWS COMPLETED DATE/TIME: 12/18/2019 3:47 pm REASON FOR STUDY: cough/fever COMPARISON: 10/08/2017 EXAM PARAMETERS: NUMBER OF VIEWS: two views TECHNIQUE: Digital Frontal and Lateral radiographic views of the chest acquired. RADIATION DOSE: NA LIMITATIONS: none FINDINGS: LUNGS AND PLEURA: No opacities, masses or pneumothorax. No pleural effusion. MEDIASTINUM AND HILAR STRUCTURES: No masses or contour abnormalities. HEART AND VASCULAR STRUCTURES: Heart normal size. No evidence for failure. BONES: No acute findings. HARDWARE: None in the chest. OTHER: Unchanged position of right-sided port. IMPRESSION: NO ACUTE RADIOGRAPHIC FINDING IN THE CHEST. TECHNICAL DOCUMENTATION: JOB ID: [id number] 2010 [employer]- All Rights Reserved Reading location - IP/workstation name: [email or web address]
[2019-12-18 16:38] LABS: ABSOLUTE EOSINOPHILS # (AUTO) 0.2 10^3/uL (0.0-0.6); ABSOLUTE MONOCYTES (AUTO) 0.6 10^3/uL (0.1-1.4); ABSOLUTE NEUT (AUTO) 5.5 10^3/uL (1.7-8.2); BASOPHILS % (AUTO) 0.3 % (0-2); EOSINOPHILS % (AUTO) 2.6 % (0-6); HEMATOCRIT 41.1 % (36.0-47.0); HEMOGLOBIN 13.9 g/dL (12.0-15.5); MEAN CORPUSCULAR HEMOGLOBIN 32.5 pg (27.0-33.4); MEAN CORPUSCULAR HGB CONC 33.8 g/dL (32.0-36.0); MEAN CORPUSCULAR VOLUME 96 fl (80-97); MONOCYTES % (AUTO) 6.8 % (3-13); PLATELET COUNT 148 10^3/uL (150-450); RED BLOOD COUNT 4.29 10^6/uL (3.72-5.28); RED CELL DISTRIBUTION WIDTH 13.8 % (11.5-14.0); SEGMENTED NEUTROPHILS % (AUTO) 66.3 % (42-78); TOTAL CELLS COUNTED % (AUTO) 100 %; WHITE BLOOD COUNT 8.3 10^3/uL (4.0-10.5)
[2019-12-18 17:12] LABS: ALKALINE PHOSPHATASE 130 U/L (38-126); ANION GAP 11 (5-19); ASPARTATE AMINO TRANSFERASE 52 U/L (14-36); BILIRUBIN,DIRECT 0.4 mg/dL (0.0-0.4); BILIRUBIN,TOTAL 0.9 mg/dL (0.2-1.3); BLOOD UREA NITROGEN 17 mg/dL (7-20); CALCIUM 9.5 mg/dL (8.4-10.2); CARBON DIOXIDE 23 mmol/L (22-30); CHLORIDE 108 mmol/L (98-107); GLUCOSE 99 mg/dL (75-110); POTASSIUM 3.7 mmol/L (3.6-5.0); TOTAL PROTEIN 6.9 g/dL (6.3-8.2)
[2019-12-18 18:00] VITALS: BP 145/60
== END 2019-12-18 18:00 | disposition home or self-care (01) ==
LOC: ER 14:16
DX: B34.9 Viral infection, unspecified (principal); R05 Cough; R53.81 Other malaise; R53.83 Other fatigue; M79.10 Myalgia, unspecified site; E86.0 Dehydration; I10 Essential (primary) hypertension; Z21 Asymptomatic human immunodeficiency virus [HIV] infection status; Z87.891 Personal history of nicotine dependence
CPT/HCPCS: 99283; 36415; 85025; 80053; 87804; 71046; J1642